=== PATIENT | male | born 1960 | race Caucasian/White ===

== ENCOUNTER 2016-08-24 15:26 | Emergency (ER) | payer BC, OTHER ==
[~2016-08-24] VITALS: Ht 182.9 cm; Wt 87.0 kg
[2016-08-24 15:30] VITALS: TEMP 36.6; Ht 182.9 cm; Wt 87.0 kg
[2016-08-24] MEDS ORDERED: MINO50TA PO (16:33)
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
--- NOTE | 2016-08-24 16:49 | DIAGNOSTIC IMAGING REPORT ---
LUMBAR SPINE 5 VIEWS HISTORY: Lower back pain COMPARISON: Lumbar spine 06/27/2010. FINDINGS: There is no fracture. No subluxation. Moderate to severe disc space narrowing at L4-L5, unchanged. Moderate facet degenerative changes seen within the lower lumbar spine. The sacrum appears intact. IMPRESSION: No fracture or subluxation within the lumbar spine. Electronically signed by: Sunil Brunner M.D. 08/24/2016 4:47 PM Dictated Date/Time: 08/24/2016 4:45 PM
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
[2016-08-24 18:11] VITALS: BP 141/93; PULSE 87; O2SAT 97
== END 2016-08-24 18:12 | disposition home or self-care (01) ==
LOC: C.EDB 15:28 → C.EDD 18:12
DX: S16.1XXA Strain of muscle, fascia and tendon at neck level, initial encounter (principal); M54.9 Dorsalgia, unspecified; M25.559 Pain in unspecified hip; M79.606 Pain in leg, unspecified; R51 Headache; V43.52XA Car driver injured in collision with other type car in traffic accident, initial encounter; Z98.890 Other specified postprocedural states; Z83.3 Family history of diabetes mellitus

== ENCOUNTER 2016-09-22 12:55 | Emergency (ER) | payer OTHER, BC ==
[~2016-09-22] VITALS: Ht 182.9 cm; Wt 86.0 kg
[~2016-09-22 12:55] MED LIST: MINO50TA PO
[2016-09-22 13:06] VITALS: TEMP 36.4; Ht 182.9 cm; Wt 86.0 kg
[2016-09-22] MEDS ORDERED: KETOROLAC TROMETHAMINE 60 MG/2 ML VIAL IM STA (13:24)
[2016-09-22] MEDS ORDERED: ACETAMINOPHEN 500 MG TAB PO STA (13:24)
[2016-09-22] MEDS ORDERED: DEXAMETHASONE SOD INJ 10 MG/ML VIAL IM ONE (13:30)
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
[2016-09-22] MEDS ORDERED: HYDR-5688 PO (14:20)
[2016-09-22] MEDS ORDERED: METH4PAK PO (14:20)
[2016-09-22] MEDS ORDERED: CYCL10TA6 PO (14:20)
[2016-09-22 14:33] VITALS: BP 149/59; PULSE 85; O2SAT 98
== END 2016-09-22 14:33 | disposition home or self-care (01) ==
LOC: C.EDB 12:56 → C.EDD 14:33
DX: M54.5 Low back pain (principal); M54.16 Radiculopathy, lumbar region; Z98.890 Other specified postprocedural states

== ENCOUNTER 2016-09-26 11:08 | Emergency (ER) | payer OTHER, BC ==
[~2016-09-26] VITALS: Ht 182.9 cm; Wt 85.4 kg
[~2016-09-26 11:08] MED LIST changes: +CYCL10TA6 PO; +HYDR-5688 PO; +METH4PAK PO
[2016-09-26 11:10] VITALS: TEMP 36.5; Ht 182.9 cm; Wt 85.4 kg
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
[2016-09-26] MEDS ORDERED: HYDR-5688 PO (12:28)
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
[2016-09-26 12:33] VITALS: BP 156/101; PULSE 84; O2SAT 98
== END 2016-09-26 12:39 | disposition home or self-care (01) ==
LOC: C.EDB 11:10
DX: M54.5 Low back pain (principal); M25.552 Pain in left hip; Z98.890 Other specified postprocedural states; Z79.899 Other long term (current) drug therapy; Z80.9 Family history of malignant neoplasm, unspecified; Z83.79 Family history of other diseases of the digestive system

== ENCOUNTER → 2017-01-26 | Outpatient (CLI) | payer BC ==
[~2017-01-26] MED LIST changes: -CYCL10TA6 PO; -METH4PAK PO
[2017-01-26 17:42] LABS: ALT/SGPT 24 U/L (12-78); AST/SGOT 16 U/L (15-37); BLOOD UREA NITROGEN 11 mg/dl (7-18); BUN/CREATININE RATIO 12.2 (10-20); CALCIUM 9.4 mg/dl (8.5-10.1); CARBON DIOXIDE 24 mmol/L (21-32); CHLORIDE 105 mmol/L (98-107); CHOLESTEROL 219 mg/dl (0-200); CREATININE 0.86 mg/dl (0.60-1.40); GLUCOSE 98 mg/dl (70-99); POTASSIUM 3.8 mmol/L (3.5-5.1); SODIUM 138 mmol/L (136-145); TRIGLYCERIDES 108 mg/dl (0-150); VERY LOW DENSITY LIPOPROT CALC 22 mg/dl
[2017-01-26 17:45] LABS: ALB/GLOB RATIO 1.4 (0.9-2); ALKALINE PHOSPHATASE 65 U/L (45-117); CHOLESTEROL/HDL RATIO 3.6; HDL CHOLESTEROL 61 mg/dl; LDL CHOLESTEROL CALCULATED 136 mg/dl
== END | disposition home or self-care (01) ==
LOC: C.LABBC 14:43
PROVIDERS: ATTEND Physician Assistant
DX: E78.1 Pure hyperglyceridemia (principal)

== ENCOUNTER 2017-07-31 19:14 | Emergency (ER) | payer BC, OTHER ==
[~2017-07-31] VITALS: Ht 182.9 cm; Wt 91.9 kg
[~2017-07-31 19:14] MED LIST changes: -HYDR-5688 PO
[2017-07-31 19:16] VITALS: TEMP 36.8; Ht 182.9 cm; Wt 91.9 kg
[2017-07-31] MEDS ORDERED: SODIUM CHLORIDE 0.9% 1000ML 1,000 ML IV STA (19:31)
[2017-07-31] MEDS ORDERED: KETOROLAC TROMETHAMINE 30 MG/ML VIAL IV STA (19:31)
[2017-07-31 19:42] LABS: BASO % 0.3 %; BASO ABS # 0.03 K/uL (0-0.2); EOS % 0.5 %; EOS ABS # 0.06 K/uL (0-0.5); HEMATOCRIT 46.1 % (42-52); HEMOGLOBIN 16.3 g/dL (14.0-18.0); IG# 0.14 K/uL (0.00-0.02); LYMPH % 26.9 %; LYMPH ABS # 3.04 K/uL (1.2-3.4); MEAN CELL VOLUME 83.8 fL (80-100); MEAN CORPUSCULAR HEMOGLOBIN 29.6 pg (25-34); MEAN CORPUSCULAR HGB CONC 35.4 g/dl (32-36); MEAN PLATELET VOLUME 9.8 fL (7.4-10.4); MONO % 8.5 %; MONO ABS # 0.96 K/uL (0.11-0.59); NEUT % 62.6 %; NEUT ABS # 7.08 K/uL (1.4-6.5); PLATELET COUNT 259 K/uL (130-400); RED CELL DISTRIBUTION WIDTH CV 14.2 % (11.5-14.5); RED CELL DISTRIBUTION WIDTH SD 43.5 fL (36.4-46.3); WHITE BLOOD COUNT 11.31 K/uL (4.8-10.8)
[2017-07-31] MEDS ORDERED: OPTIRAY 320 IV PRN (19:45)
[2017-07-31] MEDS ORDERED: IBUP-103 PO (19:47)
--- NOTE | 2017-07-31 20:00 | EMERGENCY ROOM VISIT NOTE ---
History Report prepared by Zhou: Hui Cobos Under the Supervision of: Dr. Wilber Flowers M.D. First contact with patient: 19:21 Chief Complaint: FLANK PAIN Stated Complaint: R ABD PAIN-R LOWER BACK History of Present Illness The patient is a 56 year old male who presents to the Emergency Room with complaints of intermittent right sided abdominal pain beginning on Wednesday, four days ago. The patient states his pain radiates to his right sided back. He states his pain worsens when he eats. Presently, he rates his pain as a 4/10. The patient reports he saw his PCP for a regular check up three days ago. He told his PCP about his symptoms who did not think his pain was anything to be concerned about. The patient notes he had a similar pain in May. He denies any nausea, vomiting, diarrhea, urinary symptoms, or testicular pain. Source of History: patient Onset: 4 days ago Position: abdomen Symptom Intensity: 4/10 Timing: intermittent Modifying Factors (Relieving): eating Associated Symptoms: + abdominal pain, No nausea, No vomiting, No diarrhea, No urinary symptoms Review of Systems See HPI for pertinent positives and negatives. A total of ten systems were reviewed and were otherwise negative. Past Medical & Surgical Medical Problems: (1) No Known Active Medical Problems Family History Patient reports no known family medical history. Social History Smoking Status: Never Smoker Housing Status: lives alone Occupation Status: employed Current/Historical Medications Scheduled PRN Ibuprofen Tab (Advil), 200-600 MG PO Q4H PRN for Pain Allergies Coded Allergies: No Known Allergies (Unverified , 07/31/17) Physical Exam Vital Signs Date Time Temp Pulse Resp B/P (MAP) Pulse Ox O2 Delivery O2 Flow Rate FiO2 07/31/17 20:49 73 18 168/105 97 Room Air 07/31/17 19:16 36.8 79 16 179/115 97 Room Air Physical Exam GENERAL: Awake, alert, well-appearing, in no distress HENT: Normocephalic, atraumatic. Oropharynx unremarkable. EYES: Normal conjunctiva. Sclera non-icteric. NECK: Supple. No nuchal rigidity. FROM. No JVD. RESPIRATORY: Clear to auscultation. CARDIAC: Regular rate, normal rhythm. Extremities warm and well perfused. Pulses equal. ABDOMEN: Soft, non-distended. No tenderness to palpation. No rebound or guarding. No masses. RECTAL: Deferred. MUSCULOSKELETAL: Chest examination reveals no tenderness. The back is symmetrical on inspection without obvious abnormality. There is no CVA tenderness to palpation. No joint edema. LOWER EXTREMITIES: Calves are equal size bilaterally and non-tender. No edema. No discoloration. NEURO: Normal sensorium. No sensory or motor deficits noted. SKIN: No rash or jaundice noted. Medical Decision & Procedures ER Provider Diagnostic Interpretation: Radiology results as stated below per my review and radiologist interpretation: CT SCAN OF THE ABDOMEN AND PELVIS WITH IV CONTRAST FINDINGS: Lung bases: The heart is enlarged and without pericardial effusion. There are coronary artery calcifications. Calcified granulomas are noted in the right lung base. The lung bases are otherwise clear noting dependent atelectasis. Liver: The contrast-enhanced liver is enlarged, measuring 18.9 cm in length. The liver demonstrates diffusely diminished attenuation consistent with hepatic steatosis. There is no intrahepatic biliary ductal dilatation. The hepatic veins and portal veins are patent. Gallbladder: Unremarkable. Spleen: Normal in size and attenuation. Pancreas: Unremarkable. Adrenal glands: Unremarkable. Kidneys: The contrast enhanced kidneys are normal in size and without hydronephrosis. The kidneys enhance symmetrically. Abdominal vasculature: The abdominal aorta is normal in course and caliber noting mild atherosclerotic calcification. Bowel: There are scattered colonic diverticula without CT evidence of acute diverticulitis. No bowel obstruction is seen. The appendix is well-visualized and normal. Peritoneum: There is no intraperitoneal free air or abdominal ascites. Lymphadenopathy: None. Pelvic viscera: The bladder, prostate, and seminal vesicles are normal as visualized. There are bilateral fat-containing inguinal hernias. Skeletal structures: A hemangioma is noted in the body of L3. No lytic or blastic lesions are seen. IMPRESSION: 1. There are no acute infectious or inflammatory findings in the abdomen or pelvis. 2. Hepatomegaly and hepatic steatosis. 3. Cardiomegaly. 4. Bilateral fat-containing inguinal hernias. 5. Additional findings as above. Electronically signed by: Alex Porter M.D. Laboratory Results 07/31/17 19:33 Red Blood Count 5.50, Mean Corpuscular Volume 83.8, Mean Corpuscular Hemoglobin 29.6, Mean Corpuscular Hemoglobin Concent 35.4, Mean Platelet Volume 9.8, Neutrophils (%) (Auto) 62.6, Lymphocytes (%) (Auto) 26.9, Monocytes (%) (Auto) 8.5, Eosinophils (%) (Auto) 0.5, Basophils (%) (Auto) 0.3, Neutrophils # (Auto) 7.08, Lymphocytes # (Auto) 3.04, Monocytes # (Auto) 0.96, Eosinophils # (Auto) 0.06, Basophils # (Auto) 0.03 07/31/17 19:33 Test 07/31/17 19:26 07/31/17 19:33 Urine Color YELLOW Urine Appearance CLEAR (CLEAR) Urine pH 6.5 (4.5-7.5) Urine Specific Thorp 1.011 (1.000-1.030) Urine Protein NEG (NEG) Urine Glucose (UA) NEG (NEG) Urine Ketones NEG (NEG) Urine Occult Blood TRACE (NEG) Urine Nitrite NEG (NEG) Urine Bilirubin NEG (NEG) Urine Urobilinogen NEG (NEG) Urine Leukocyte Esterase NEG (NEG) Urine WBC (Auto) 0 /hpf (0-5) Urine RBC (Auto) 0-4 /hpf (0-4) Urine Hyaline Casts (Auto) 0 /lpf (0-5) Urine Epithelial Cells (Auto) 0-5 /lpf (0-5) Urine Bacteria (Auto) NEG (NEG) White Blood Count 11.31 K/uL (4.8-10.8) Red Blood Count 5.50 M/uL (4.7-6.1) Hemoglobin 16.3 g/dL (14.0-18.0) Hematocrit 46.1 % (42-52) Mean Corpuscular Volume 83.8 fL (80-100) Mean Corpuscular Hemoglobin 29.6 pg (25-34) Mean Corpuscular Hemoglobin Concent 35.4 g/dl (32-36) Platelet Count 259 K/uL (130-400) Mean Platelet Volume 9.8 fL (7.4-10.4) Neutrophils (%) (Auto) 62.6 % Lymphocytes (%) (Auto) 26.9 % Monocytes (%) (Auto) 8.5 % Eosinophils (%) (Auto) 0.5 % Basophils (%) (Auto) 0.3 % Neutrophils # (Auto) 7.08 K/uL (1.4-6.5) Lymphocytes # (Auto) 3.04 K/uL (1.2-3.4) Monocytes # (Auto) 0.96 K/uL (0.11-0.59) Eosinophils # (Auto) 0.06 K/uL (0-0.5) Basophils # (Auto) 0.03 K/uL (0-0.2) RDW Standard Deviation 43.5 fL (36.4-46.3) RDW Coefficient of Variation 14.2 % (11.5-14.5) Immature Granulocyte % (Auto) 1.2 % Immature Granulocyte # (Auto) 0.14 K/uL (0.00-0.02) Anion Gap 12.0 mmol/L (3-11) Est Creatinine Clear Calc Drug Dose 90.0 ml/min Estimated GFR () 95.0 Estimated GFR (Non- 82.0 BUN/Creatinine Ratio 10.0 (10-20) Calcium Level 9.4 mg/dl (8.5-10.1) Total Bilirubin 0.8 mg/dl (0.2-1) Direct Bilirubin 0.2 mg/dl (0-0.2) Aspartate Amino Transf (AST/SGOT) 19 U/L (15-37) Alanine Aminotransferase (ALT/SGPT) 41 U/L (12-78) Alkaline Phosphatase 79 U/L (45-117) Total Protein 7.8 gm/dl (6.4-8.2) Albumin 4.2 gm/dl (3.4-5.0) Lipase 182 U/L (73-393) Laboratory results reviewed by me Medications Administered Medications (Trade) Dose Ordered Sig/Mikel Route Start Time Stop Time Status Last Admin Dose Admin Sodium Chloride 1,000 ml @ 999 mls/hr Q1H1M STAT IV 07/31/17 19:31 07/31/17 20:31 DC 07/31/17 19:50 999 MLS/HR Ketorolac Tromethamine (Toradol Inj) 15 mg NOW STAT IV 07/31/17 19:31 07/31/17 19:33 DC 07/31/17 19:50 15 MG ED Course 1925: The patient was evaluated in room C4. A complete history and physical exam was performed. 2048: I updated the patient on his test results he is feeling better. 2100: I reevaluated the patient. Discussed results and discharge instructions: He verbalized understanding and agreement. The patient is ready for discharge. Medical Decision I reviewed the patient's past medical history, medications, and the nursing notes as described above. Differential diagnosis: Etiologies such as appendicitis, diverticulitis, PUD, biliary pathology, UTI, pancreatitis, obstruction, mesenteric ischemia, aortic pathology, infections, inflammatory bowel disease, renal colic, as well as others were entertained. The patient is a 56-year-old gentleman who presents emergency department with right flank and right-sided abdominal pain that has been ongoing for the past several days per hpi. Rather the patient is relatively well-appearing in no acute distress, afebrile stable vital signs. Abdomen soft nontender nondistended. WBC within normal limits. UA with trace blood. Labs otherwise unremarkable. CT scan of the abdomen pelvis negative for acute findings. Patient feeling improved without any pain after IV fluids and Toradol. Unclear etiology of the patient's symptoms. Recently passed stone is possible though there is no evidence of recent obstruction. Findings and plan for follow-up reviewed with patient. Patient agreeable and d/c'd per discharge instructions. Medication Reconcilliation Current Medication List: was personally reviewed by me Blood Pressure Screening Patient's blood pressure: Elevated blood pressure Blood pressure disposition: Elevated BP felt to be situational Impression Primary Impression: Right flank pain Scribe Attestation The scribe's documentation has been prepared under my direction and personally reviewed by me in its entirety. I confirm that the note above accurately reflects all work, treatment, procedures, and medical decision making performed by me. Departure Information Dispostion Home / Self-Care Referrals Jony Matute M.D. (PCP) Forms HOME CARE DOCUMENTATION FORM, IMPORTANT VISIT INFORMATION Patient Instructions ED Abdominal Pain Unkn Cause Male, ED Flank Pain Uncertain Cause, My [facility] Additional Instructions Please follow up with your primary care physician in the next 1-3 days for re- evaluation. The cause of your symptoms is unclear at this time. It is possible that you may have passed a kidney stone. Otherwise, your exam, lab results, and CT scan did not show signs of an emergent condition at this time. Acetaminophen or ibuprofen for pain and fevers as needed. Drink plenty of fluids to ensure hydration. Return to the emergency department for worsening symptoms as described in the accompanying instructions.
[2017-07-31 20:01] LABS: ALBUMIN 4.2 gm/dl (3.4-5.0); CALCIUM 9.4 mg/dl (8.5-10.1); CREATININE 1.03 mg/dl (0.60-1.40); POTASSIUM 3.6 mmol/L (3.5-5.1)
[2017-07-31 20:04] LABS: TOTAL PROTEIN 7.8 gm/dl (6.4-8.2)
--- NOTE | 2017-07-31 20:44 | DIAGNOSTIC IMAGING REPORT ---
CT SCAN OF THE ABDOMEN AND PELVIS WITH IV CONTRAST CLINICAL HISTORY: Right lower quadrant abdominal pain. COMPARISON STUDY: Abdominal CT dated 03/17/2016. TECHNIQUE: Following the IV administration of 117 cc of Optiray 320, CT scan of the abdomen and pelvis is performed from the lung bases to the proximal femora. Images are reviewed in the axial, sagittal, and coronal planes. IV contrast was administered without complication. A dose lowering technique was utilized adhering to the principles of ALARA. CT DOSE: 523.59 mGy.cm FINDINGS: Lung bases: The heart is enlarged and without pericardial effusion. There are coronary artery calcifications. Calcified granulomas are noted in the right lung base. The lung bases are otherwise clear noting dependent atelectasis. Liver: The contrast-enhanced liver is enlarged, measuring 18.9 cm in length. The liver demonstrates diffusely diminished attenuation consistent with hepatic steatosis. There is no intrahepatic biliary ductal dilatation. The hepatic veins and portal veins are patent. Gallbladder: Unremarkable. Spleen: Normal in size and attenuation. Pancreas: Unremarkable. Adrenal glands: Unremarkable. Kidneys: The contrast enhanced kidneys are normal in size and without hydronephrosis. The kidneys enhance symmetrically. Abdominal vasculature: The abdominal aorta is normal in course and caliber noting mild atherosclerotic calcification. Bowel: There are scattered colonic diverticula without CT evidence of acute diverticulitis. No bowel obstruction is seen. The appendix is well-visualized and normal. Peritoneum: There is no intraperitoneal free air or abdominal ascites. Lymphadenopathy: None. Pelvic viscera: The bladder, prostate, and seminal vesicles are normal as visualized. There are bilateral fat-containing inguinal hernias. Skeletal structures: A hemangioma is noted in the body of L3. No lytic or blastic lesions are seen. IMPRESSION: 1. There are no acute infectious or inflammatory findings in the abdomen or pelvis. 2. Hepatomegaly and hepatic steatosis. 3. Cardiomegaly. 4. Bilateral fat-containing inguinal hernias. 5. Additional findings as above. Electronically signed by: Alex Porter M.D. 07/31/2017 8:43 PM Dictated Date/Time: 07/31/2017 8:38 PM
[2017-07-31 20:49] VITALS: BP 168/105; PULSE 73; O2SAT 97
== END 2017-07-31 21:06 | disposition home or self-care (01) ==
LOC: C.EDB 19:15 → C.EDC 21:06
DX: R10.9 Unspecified abdominal pain (principal)

== ENCOUNTER 2021-04-14 11:29 | Inpatient (IN) ==
[2021-04-14] MEDS ORDERED: SODIUM CHLORIDE 0.9% 1000ML 1,000 ML IV ONE (11:52)
[2021-04-14] MEDS ORDERED: dilTIAZem HCl 5 MG/ML 5 ML VIAL IV STA ×2 (11:55→12:46)
[2021-04-14] MEDS ORDERED: STAT IV Infusion **Titration per Protocol STA (11:59)
--- NOTE | 2021-04-14 12:01 | Emergency Department Note ---
History of Present Illness General Chief complaint: Shortness of Breath/Dyspnea Stated complaint: SOB FOR 5 DAYS History of Present Illness Maximum Pain Intensity: 8 This patient is a pleasant 60-year-old male who presents emergency department via private vehicle for evaluation of shortness of breath that has been going on for approximately 5 days. The patient noticed that it is worse with exertion. He also reports a mild, dull left-sided chest pain and a tingling in his left arm. He has never experienced symptoms like this before. He denies any recent cough or fever. No nausea reported. He has not taken anything for his symptoms. The patient contacted his family physician today, who sent him to the emergency department for evaluation. Home Medications Medication Instructions Recorded Confirmed Type ascorbic acid (vitamin C) 1,000 mg 1 gm PO DAILY tab 10/13/18 04/14/21 History tablet Allergies Allergy/AdvReac Type Severity Reaction Status Date / Time No Known Allergies Allergy Verified 03/14/21 12:57 Past Med/Surg History Medical History Allergic rhinitis Hepatic steatosis CT Abd//pelvis 07/2017 Surgical History S/P colonoscopy (05/18/16) Benign cystic lesion at hepatic flexure, Aspirate negative for malignancy. Recommend repeat colonoscopy [id number]. S/P tonsillectomy Family History Brother Diabetes Obesity Other Colonic polyp Social History Smoking Status: Never smoker Current Living Situation: Alone Feels Safe at Home: Yes Review of Systems A total of 10 systems reviewed and were otherwise negative Physical Exam Vital Signs Vital Signs - 24 hr 04/14/21 11:29 04/14/21 11:33 04/14/21 11:49 Temperature 36.6 C Temperature Source Temporal Artery Scan Pulse Rate 78 179 H Pulse Rate [Right Finger] 138 H Pulse Rate from SpO2 Sensor 109 H Pulse Rhythm [Right Finger] Irregular Respiratory Rate 26 H 20 28 H Respiratory Effort / Characteristics Non-Labored Non-Labored Spontaneous Respiratory Depth Normal Normal Respiratory Pattern Regular Regular Blood Pressure 136/82 Blood Pressure [Right Arm] 129/99 Blood Pressure Mean 100 Blood Pressure Mean [Right Arm] 109 Blood Pressure Position Sitting Blood Pressure Position [Right Arm] Sitting Pulse Oximetry 95 96 98 Oxygen Delivery Method Room Air Room Air Sepsis Recent Fever Within 48 Hours No Sepsis New/Unexplained Change in Mental Status No Sepsis Action Taken by Nursing No Action Required 04/14/21 11:50 04/14/21 12:00 04/14/21 12:10 Temperature Temperature Source Pulse Rate 180 H 188 H 188 H Pulse Rate [Right Finger] Pulse Rate from SpO2 Sensor 115 H 147 H Pulse Rhythm [Right Finger] Respiratory Rate 29 H 29 H 25 H Respiratory Effort / Characteristics Respiratory Depth Respiratory Pattern Blood Pressure Blood Pressure [Right Arm] Blood Pressure Mean Blood Pressure Mean [Right Arm] Blood Pressure Position Blood Pressure Position [Right Arm] Pulse Oximetry 97 92 Oxygen Delivery Method Sepsis Recent Fever Within 48 Hours Sepsis New/Unexplained Change in Mental Status Sepsis Action Taken by Nursing 04/14/21 12:20 04/14/21 12:30 04/14/21 12:40 Temperature Temperature Source Pulse Rate 134 H 153 H 153 H Pulse Rate [Right Finger] Pulse Rate from SpO2 Sensor 118 H 94 H 118 H Pulse Rhythm [Right Finger] Respiratory Rate 28 H 23 25 H Respiratory Effort / Characteristics Respiratory Depth Respiratory Pattern Blood Pressure Blood Pressure [Right Arm] Blood Pressure Mean Blood Pressure Mean [Right Arm] Blood Pressure Position Blood Pressure Position [Right Arm] Pulse Oximetry 92 93 93 Oxygen Delivery Method Sepsis Recent Fever Within 48 Hours Sepsis New/Unexplained Change in Mental Status Sepsis Action Taken by Nursing 04/14/21 12:50 04/14/21 13:00 04/14/21 13:10 Temperature Temperature Source Pulse Rate 161 H 164 H 148 H Pulse Rate [Right Finger] Pulse Rate from SpO2 Sensor 104 H 131 H 138 H Pulse Rhythm [Right Finger] Respiratory Rate 30 H 24 26 H Respiratory Effort / Characteristics Respiratory Depth Respiratory Pattern Blood Pressure Blood Pressure [Right Arm] Blood Pressure Mean Blood Pressure Mean [Right Arm] Blood Pressure Position Blood Pressure Position [Right Arm] Pulse Oximetry 92 94 93 Oxygen Delivery Method Sepsis Recent Fever Within 48 Hours Sepsis New/Unexplained Change in Mental Status Sepsis Action Taken by Nursing 04/14/21 13:20 04/14/21 13:30 04/14/21 13:40 Temperature Temperature Source Pulse Rate 122 H 138 H 159 H Pulse Rate [Right Finger] Pulse Rate from SpO2 Sensor 109 H 104 H 123 H Pulse Rhythm [Right Finger] Respiratory Rate 25 H 25 H 29 H Respiratory Effort / Characteristics Respiratory Depth Respiratory Pattern Blood Pressure 118/88 Blood Pressure [Right Arm] Blood Pressure Mean 98 Blood Pressure Mean [Right Arm] Blood Pressure Position Blood Pressure Position [Right Arm] Pulse Oximetry 92 96 96 Oxygen Delivery Method Sepsis Recent Fever Within 48 Hours Sepsis New/Unexplained Change in Mental Status Sepsis Action Taken by Nursing 04/14/21 13:50 04/14/21 13:51 04/14/21 14:00 Temperature Temperature Source Pulse Rate 145 H 159 H Pulse Rate [Right Finger] 137 H Pulse Rate from SpO2 Sensor 124 H 118 H Pulse Rhythm [Right Finger] Respiratory Rate 25 H 31 H 32 H Respiratory Effort / Characteristics Respiratory Depth Respiratory Pattern Blood Pressure 146/111 H Blood Pressure [Right Arm] 118/88 Blood Pressure Mean 122 Blood Pressure Mean [Right Arm] 98 Blood Pressure Position Blood Pressure Position [Right Arm] Sitting Pulse Oximetry 93 93 96 Oxygen Delivery Method Room Air Sepsis Recent Fever Within 48 Hours Sepsis New/Unexplained Change in Mental Status Sepsis Action Taken by Nursing See below Constitutional WD/WN, vitals as above Eyes EOM intact bilaterally ENMT external ear and nose normal, oropharynx normal Neck trachea midline Respiratory normal respiratory effort, lungs clear to auscultation Cardiovascular Tachycardic. Irregularly irregular. Radial pulse +2 bilaterally. Gastrointestinal (Abdomen) normal bowel sounds, soft, nontender, no hepatosplenomegaly Musculoskeletal no cyanosis or clubbing, extremities motor strength 5/5 Skin no rashes, warm and dry Neurologic Alert and oriented x3. No focal motor deficits. Psychiatric Acting appropriately Course Course Patient was seen and examined Vital signs including blood pressure were reviewed medications list was verified with patient Labs were obtained, and a saline lock was established And EKG was performed and reviewed An order was placed for continuous cardiac monitoring. The monitor shows a rate of 178 with atrial fibrillation with RVR The patient was ordered diltiazem bolus and a diltiazem drip in addition to fluids Imaging was performed reviewed The case was discussed with my supervising physician who is in agreement with my plan Upon reevaluation, the patient was resting comfortably. She denied any pain. We discussed his results. He voiced understanding, and was comfortable with disposition and likely admission. He was ordered an additional dose of diltiazem 15 mg IV bolus The patient was evaluated by the hospitalist service. Patient remained stable in the emergency department Consultations Consultation #1: Dr. Palomnio Administered Medications Diltiazem HCl 125 mg/ Dextrose 125 mls @ 15 mls/hr IV .Q8H20M REPLACED BY [facility]; Protocol Stop: 05/14/21 11:59 Last Titration: 04/14/21 14:13 Dose: 15 mg/hr, 15 mls/hr Documented by: [id number] Cosigned by: [id number] Titration: 04/14/21 13:38 Dose: 10 mg/hr, 10 mls/hr Documented by: [id number] Cosigned by: [id number] Admin: 04/14/21 12:29 Dose: 5 mg/hr, 5 mls/hr Documented by: [id number] Cosigned by: [id number] Discontinued Medications Diltiazem HCl (Diltiazem Hcl 5 Mg/Ml 5 Ml Vial) 10 mg IV NOW STA Stop: 04/14/21 11:56 Last Admin: 04/14/21 12:17 Dose: 10 mg Documented by: [id number] Cosigned by: [id number] Diltiazem HCl (Diltiazem Hcl 5 Mg/Ml 5 Ml Vial) 15 mg IV NOW STA Stop: 04/14/21 12:47 Last Admin: 04/14/21 13:03 Dose: 15 mg Documented by: [id number] Cosigned by: [id number] Sodium Chloride (Nss 1000ml) 1,000 mls @ 999 mls/hr IV .Q1H1M ONE Stop: 04/14/21 12:52 Last Admin: 04/14/21 12:16 Dose: 999 mls/hr Documented by: [id number] Medical Decision Making Medical Records Attestation: I reviewed the patient's medical records. Home Medications Current Medication List: was personally reviewed by me Laboratory Data Attestation: I reviewed the patient's lab results. Result diagrams: 04/14/21 11:55 04/14/21 11:55 Lab Results 04/14/21 04/14/21 04/14/21 Range/Units 11:55 11:55 11:55 WBC 11.38 H (4.8-10.8) K/uL RBC 5.12 (4.7-6.1) M/uL Hgb 14.8 (14.0-18.0) g/dL Hct 45.4 (42-52) % MCV 88.7 (80-100) fL MCH 28.9 (25-34) pg MCHC 32.6 (32-36) g/dL RDW Std Deviation 48.2 H (36.4-46.3) fL RDW Coeff of Paz 15.0 H (11.5-14.5) % Plt Count 278 (130-400) K/uL MPV 11.4 H (7.4-10.4) fL Immature Gran % (Auto) 0.5 % Neut % (Auto) 70.6 % Lymph % (Auto) 21.3 % [place] % (Auto) 7.3 % Eos % (Auto) 0.0 % Baso % (Auto) 0.3 % Neut # (Auto) 8.04 H (1.4-6.5) K/uL Lymph # (Auto) 2.42 (1.2-3.4) K/uL [place] # (Auto) 0.83 H (0.11-0.59) K/uL Eos # (Auto) 0.00 (0-0.5) K/uL Baso # (Auto) 0.03 (0-0.2) K/uL Immature Gran # (Auto) 0.06 H (0.00-0.02) K/uL PT 11.0 (9.0-12.0) Seconds INR 1.1 (0.9-1.1) APTT 24.4 (21.0-31.0) Seconds PTT Ratio 0.9 Sodium 138 (136-145) mmol/L Potassium 3.8 (3.5-5.1) mmol/L Chloride 110 H (98-107) mmol/L Carbon Dioxide 21 (21-32) mmol/L Anion Gap 7.0 (3-11) BUN 12 (7-18) mg/dl Creatinine 1.18 (0.6-1.4) mg/dl Est Cr Clr Drug Dosing 80.9 ml/min Est GFR ( Amer) 78.4 ml/min Est GFR (Non-Af Amer) 67.6 ml/min BUN/Creatinine Ratio 10.5 (10-20) Glucose 140 H (70-99) mg/dl Calcium 8.8 (8.5-10.1) mg/dl Magnesium 2.1 (1.8-2.4) mg/dl Total Bilirubin 1.0 (0.2-1) mg/dl AST 89 H (15-37) U/L ALT 224 H (12-78) Alkaline Phosphatase 95 (45-117) U/L Troponin I < 0.015 (0-0.045) ng/ml Total Protein 6.9 (6.4-8.2) gm/dl Albumin 3.5 (3.4-5.0) gm/dl Globulin 3.4 (2.5-4.0) gm/dl Albumin/Globulin Ratio 1.0 (0.9-2) SARS-CoV-2, RNA, NAAT (NEGATIVE) 04/14/21 Range/Units 12:30 WBC (4.8-10.8) K/uL RBC (4.7-6.1) M/uL Hgb (14.0-18.0) g/dL Hct (42-52) % MCV (80-100) fL MCH (25-34) pg MCHC (32-36) g/dL RDW Std Deviation (36.4-46.3) fL RDW Coeff of Paz (11.5-14.5) % Plt Count (130-400) K/uL MPV (7.4-10.4) fL Immature Gran % (Auto) % Neut % (Auto) % Lymph % (Auto) % [place] % (Auto) % Eos % (Auto) % Baso % (Auto) % Neut # (Auto) (1.4-6.5) K/uL Lymph # (Auto) (1.2-3.4) K/uL [place] # (Auto) (0.11-0.59) K/uL Eos # (Auto) (0-0.5) K/uL Baso # (Auto) (0-0.2) K/uL Immature Gran # (Auto) (0.00-0.02) K/uL PT (9.0-12.0) Seconds INR (0.9-1.1) APTT (21.0-31.0) Seconds PTT Ratio Sodium (136-145) mmol/L Potassium (3.5-5.1) mmol/L Chloride (98-107) mmol/L Carbon Dioxide (21-32) mmol/L Anion Gap (3-11) BUN (7-18) mg/dl Creatinine (0.6-1.4) mg/dl Est Cr Clr Drug Dosing ml/min Est GFR ( Amer) ml/min Est GFR (Non-Af Amer) ml/min BUN/Creatinine Ratio (10-20) Glucose (70-99) mg/dl Calcium (8.5-10.1) mg/dl Magnesium (1.8-2.4) mg/dl Total Bilirubin (0.2-1) mg/dl AST (15-37) U/L ALT (12-78) Alkaline Phosphatase (45-117) U/L Troponin I (0-0.045) ng/ml Total Protein (6.4-8.2) gm/dl Albumin (3.4-5.0) gm/dl Globulin (2.5-4.0) gm/dl Albumin/Globulin Ratio (0.9-2) SARS-CoV-2, RNA, NAAT NEGATIVE (NEGATIVE) Imaging Data Attestation: I personally reviewed and interpreted this imaging study as follows: Radiologist's Impression: Chest X-Ray 04/14/21 11:52 XR chest 1V portable HISTORY: Shortness of breath. Weakness. COMPARISON: None. FINDINGS: No pneumothorax. No pleural effusions. The cardiac silhouette is mildly enlarged. The left lung is clear. Small patchy airspace opacity within the right medial lung base. No evidence for pulmonary edema. IMPRESSION: 1. Small patchy airspace opacity within the right medial lung base. This could represent atelectasis or pneumonia. 2. Mild cardiomegaly. ACT 112: Negative or not required by law. Electronically signed by: Sunil Brunner M.D. 04/14/2021 12:19 PM ECG Data Attestation: I personally reviewed and interpreted this ECG as follows: Additional Comments: EKG shows atrial fibrillation with RVR Ventricular rate 187 bpm QTC [address] elevation or depression noted. No prior for comparison noted Blood Pressure Blood Pressure Findings: Elevated blood pressure Blood Pressure Disposition: elevated BP felt to be situational MDM Narrative Differential diagnosis: Acute myocardial infarction, cardiac arrhythmia, anemia, thyroid abnormality, pneumothorax, pneumonia, bronchitis, pericarditis, electrolyte imbalance, pulmonary embolus, other infectious etiology, among othe rs This patient is a pleasant 60-year-old male who presents emergency department with a main complaint of shortness of breath and mild left-sided chest pain for the last 5 days. On exam, his heart rate was irregular and significantly high. Blood pressure was stable. EKG confirms A. fib with RVR. This was treated with diltiazem and IV fluids. Labs reveal mild leukocytosis. There was a possi ble opacity on the right on the chest x-ray. The patient denies any significant cough or fever. There was mild leukocytosis. Troponin is negative. Electrolytes were unremarkable. Renal function intact. Due to the fact that this is a new diagnosis, it was felt that the hospitalist should be consulted for likely inpatient management. The patient was in agreement. Impression & Plan Atrial fibrillation with RVR Discharge Plan Visit Data Chief Complaint: Shortness of Breath/Dyspnea Stated Complaint: SOB FOR 5 DAYS ED Provider: Jc Sifuentes ED Midlevel Provider: Dominique Piña Discharge Problem: Atrial fibrillation with RVR Patient Disposition: Admitted As Inpatient Discharge Instructions Interventions: ED Discharge Assessment Last Done: 04/14/21 14:48
[2021-04-14 12:11] LABS: Basophils # (auto) 0.03 K/uL (0-0.2); Basophils % (auto) 0.3 %; Hematocrit (blood only) 45.4 % (42-52); Hemoglobin 14.8 g/dL (14.0-18.0); Immature Granulocytes # (auto) 0.06 K/uL (0.00-0.02); Immature Granulocytes % (auto) 0.5 %; Lymphocytes # (auto) 2.42 K/uL (1.2-3.4); Lymphocytes % (auto) 21.3 %; Mean Corpuscular Hemoglobin 28.9 pg (25-34); Mean Corpuscular Hgb Conc 32.6 g/dL (32-36); Mean Corpuscular Volume 88.7 fL (80-100); Mean Platelet Volume 11.4 fL (7.4-10.4); Monocytes # (auto) 0.83 K/uL (0.11-0.59); Monocytes % (auto) 7.3 %; Neutrophils # (auto) 8.04 K/uL (1.4-6.5); Neutrophils % (auto) 70.6 %; Platelet Count 278 K/uL (130-400); RDW Standard Deviation 48.2 fL (36.4-46.3); Red Blood Count 5.12 M/uL (4.7-6.1); White Blood Count 11.38 K/uL (4.8-10.8)
--- NOTE | 2021-04-14 12:21 | XRay Report ---
XR chest 1V portable HISTORY: Shortness of breath. Weakness. COMPARISON: None. FINDINGS: No pneumothorax. No pleural effusions. The cardiac silhouette is mildly enlarged. The left lung is clear. Small patchy airspace opacity within the right medial lung base. No evidence for pulmo nary edema. IMPRESSION: 1. Small patchy airspace opacity within the right medial lung base. This could represent atelectasis or pneumonia. 2. Mild cardiomegaly. ACT 112: Negative or not required by law. Electronically signed by: Sunil Brunner M.D. 04/14/2021 12:19 PM
[2021-04-14 12:23] LABS: INR 1.1 (0.9-1.1); Partial Thromboplastin Ratio 0.9; Partial Thromboplastin Time 24.4 Seconds (21.0-31.0)
[2021-04-14 12:28] LABS: Chloride 110 mmol/L (98-107); Potassium 3.8 mmol/L (3.5-5.1); Sodium 138 mmol/L (136-145)
[2021-04-14] MEDS: dilTIAZem HCL 125 MG in DEXTROSE 5% 100 ML IV SCH ×2 (12:29→20:51)
[2021-04-14 12:32] LABS: Albumin Level 3.5 gm/dl (3.4-5.0); Aspartate Aminotransferase 89 U/L (15-37); BUN Creatinine Ratio 10.5 (10-20); Blood Urea Nitrogen 12 mg/dl (7-18); Calcium 8.8 mg/dl (8.5-10.1); Carbon Dioxide 21 mmol/L (21-32); Creatinine Clr Calc Pharmacy 80.9 ml/min; Est GFR (African American) 78.4 ml/min; Est GFR (Non-African American) 67.6 ml/min; Glucose 140 mg/dl (70-99); Magnesium 2.1 mg/dl (1.8-2.4)
[2021-04-14 12:37] LABS: Alanine Aminotransferase 224 (12-78); Alkaline Phosphatase 95 U/L (45-117); Globulin 3.4 gm/dl (2.5-4.0); Total Protein 6.9 gm/dl (6.4-8.2); Troponin I < 0.015 ng/ml (0-0.045)
--- NOTE | 2021-04-14 14:42 | History & Physical Report ---
Date of Service April 14, 2021 Assessment & Plan (1) Atrial fibrillation, new onset: Plan: Mr. Hernandez is a 60 year old male with a history of Hypertension, Hepatic Steatosis, Hypertriglyceridemia, BCC of the Skin, and Lumbar Spinal Stenosis who presented to [facility] ER today with New-Onset Atrial Fibrillation with RVR. His symptoms include SOB and PICKENS over the past 5 days. SOB is definitely worse with ambulation and physical activities. He also describes a mild, dull left- sided chest pain and a tingling in his left arm but this is not worse with exertion and is without associated symptoms. He specifically denies any associated nausea, vomiting, or diaphoresis. He does not however feel a sensation of palpitations. He has never experienced symptoms like this before. He has not taken any medications for these symptoms. The patient contacted his family physician today, who sent him to the emergency department for evaluation. In the ER he is noted to be in New-Onset Atrial Fibrillation with RVR. Initial Troponin I is undetectable. Electrolytes are within normal limits. EKG shows rapid A-Fib with non-specific ST and T wave abnormalities, no prior tracings available for comparison. CXR shows cardiomegaly. Echocardiogram is pending. We discussed what atrial fibrillation is, the natural history of atrial fibrillation, and various management strategies. His [id number] is 1 conferring a yearly stroke /thromboembolic risk of 1.3%. Recommend the followin. Admit to telemetry. 2. Continue IV Diltiazem drip for better rate control. 3. Add Lopressor 50 mg b.i.d. for rate control. 4. Begin Eliquis 5 mg b.i.d.. 5. Obtain an Echocardiogram. 6. Monitor daily labs and EKG's. (2) Atrial fibrillation with RVR: Plan: -- As outlined above. (3) Hypertension: Plan: -- Add Lopressor 50 mg b.i.d.. -- Can convert to Toprol XL at discharge. -- Monitor vital signs each shift. (4) Essential hypertriglyceridemia: Plan: -- Would benefit by weight loss and increased aerobic activities. -- Consider adding a statin =/- ezetamibe. History of Present Illness Chief Complaint: -- SOB/PICKENS. -- New onset A-Fib with RVR. Primary Care Provider: Jony Matute MD Mr. Hernandez is a 60 year old male with a history of Hypertension, Hepatic Steatosis, Hypertriglyceridemia, BCC of the Skin, and Lumbar Spinal Stenosis who presented to [facility] ER today complaining of SOB and PICKENS over the past 5 days. SOB is definitely worse with ambulation and physical activities. He also describes a mild, dull left-sided chest pain and a tingling in his left arm but this is not worse with exertion and is without associated symptoms. He specifically denies any associated nausea, vomiting, or diaphoresis. He does not however feel a sensation of palpitations. He has never experienced symptoms like this before. He has not taken any medications for these symptoms. The patient contacted his family physician today, who sent him to the emergency department for evaluation. Patient does not take any prescription medications. He denies any prior cardiac history or events. No family history of heart disease. Father of lung cancer. Mother of cancer. Patient is on correction disability. He does not exercise routinely. Allergies Allergy/AdvReac Type Severity Reaction Status Date / Time No Known Allergies Allergy Verified 03/14/21 12:57 Home Medications Medication Instructions Recorded Confirmed Type ascorbic acid (vitamin C) 1,000 mg 1 gm PO DAILY tab 10/13/18 04/14/21 History tablet Past Med/Surg History Medical History Allergic rhinitis Hepatic steatosis CT Abd//pelvis 07/2017 Surgical History S/P colonoscopy (05/18/16) Benign cystic lesion at hepatic flexure, Aspirate negative for malignancy. Recommend repeat colonoscopy [id number]. S/P tonsillectomy Family History Brother Diabetes Obesity Other Colonic polyp Social History Smoking Status: Never smoker Hx Alcohol Use: No Hx Substance Use: No Preferred Language: Azeri Communication Ability: Effective Fuse Cup Expander Required: No Beliefs That Will Affect Care: None Current Living Situation: Alone How many Children do You have: 0 Other Information That Helps Us Care for You: No Feels Safe at Home: Yes Safety Concerns: Feels Safe At This Time Assistive Devices: None Review of Systems Review of Systems: All systems reviewed & are unremarkable except as noted in HPI & below Physical Exam Physical Exam: GENERAL: Patient in no acute distress. HEENT: Head is atraumatic, normocephalic. EOM's intact. Facies symmetric. No perioral cyanosis. NECK: No JVD. JVP is not elevated. Carotid upstrokes are + 2 bilaterally without obvious bruits. CHEST/LUNGS: Clear to auscultation throughout all lung sheppard. No wheezes, rales, or crackles. CVS: S1 and S2 are irregularly irregular, tachycardic, and distant without obvious murmurs, gallops, or rubs. PMI is nonpalpable. No lifts, heaves, or thrills. No abdominal aortic or renal bruits. ABDOMINAL EXAM: Bowel sounds are present. No masses, organomegaly, or tenderness. EXTREMITIES: No clubbing or cyanosis. No edema. Intact posterior tibial and radial pulses bilaterally. NEUROLOGIC EXAM: Patient is awake, alert, and oriented. Pleasant and cooperative. Answers questions appropriately. Speech is clear. Normal movement in all 4 extremities. Gait pattern not assessed. COMPUTER APPLICATION DEVELOPER: -- A-Fib at a rate of 130 bpm. Results & Data Results & Data ([facility]) Vital Signs (Past 12 Hours) Vital Signs Temp Pulse Pulse Resp BP BP Pulse Ox 04/14/21 13:51 137 H 31 H 118/88 93 04/14/21 13:30 138 H 25 H 118/88 96 04/14/21 13:20 122 H 25 H 92 04/14/21 13:10 148 H 26 H 93 04/14/21 13:00 164 H 24 94 04/14/21 12:50 161 H 30 H 92 04/14/21 12:40 153 H 25 H 93 04/14/21 12:30 153 H 23 93 04/14/21 12:20 134 H 28 H 92 04/14/21 12:10 188 H 25 H 92 04/14/21 12:00 188 H 29 H 04/14/21 11:50 180 H 29 H 97 04/14/21 11:49 179 H 28 H 98 04/14/21 11:33 36.6 C 78 20 136/82 96 04/14/21 11:29 138 H 26 H 129/99 95 Laboratory Results Laboratory Results - last 24 hr 04/14/21 04/14/21 04/14/21 11:55 11:55 11:55 WBC 11.38 H RBC 5.12 Hgb 14.8 Hct 45.4 MCV 88.7 MCH 28.9 MCHC 32.6 RDW Std Deviation 48.2 H RDW Coeff of Paz 15.0 H Plt Count 278 MPV 11.4 H Immature Gran % (Auto) 0.5 Neut % (Auto) 70.6 Lymph % (Auto) 21.3 [place] % (Auto) 7.3 Eos % (Auto) 0.0 Baso % (Auto) 0.3 Neut # (Auto) 8.04 H Lymph # (Auto) 2.42 [place] # (Auto) 0.83 H Eos # (Auto) 0.00 Baso # (Auto) 0.03 Immature Gran # (Auto) 0.06 H PT 11.0 INR 1.1 APTT 24.4 PTT Ratio 0.9 Sodium 138 Potassium 3.8 Chloride 110 H Carbon Dioxide 21 Anion Gap 7.0 BUN 12 Creatinine 1.18 Est Cr Clr Drug Dosing 80.9 Est GFR ( Amer) 78.4 Est GFR (Non-Af Amer) 67.6 BUN/Creatinine Ratio 10.5 Glucose 140 H Calcium 8.8 Magnesium 2.1 Total Bilirubin 1.0 AST 89 H ALT 224 H Alkaline Phosphatase 95 Troponin I < 0.015 Total Protein 6.9 Albumin 3.5 Globulin 3.4 Albumin/Globulin Ratio 1.0 SARS-CoV-2, RNA, NAAT 04/14/21 12:30 WBC RBC Hgb Hct MCV MCH MCHC RDW Std Deviation RDW Coeff of Paz Plt Count MPV Immature Gran % (Auto) Neut % (Auto) Lymph % (Auto) [place] % (Auto) Eos % (Auto) Baso % (Auto) Neut # (Auto) Lymph # (Auto) [place] # (Auto) Eos # (Auto) Baso # (Auto) Immature Gran # (Auto) PT INR APTT PTT Ratio Sodium Potassium Chloride Carbon Dioxide Anion Gap BUN Creatinine Est Cr Clr Drug Dosing Est GFR ( Amer) Est GFR (Non-Af Amer) BUN/Creatinine Ratio Glucose Calcium Magnesium Total Bilirubin AST ALT Alkaline Phosphatase Troponin I Total Protein Albumin Globulin Albumin/Globulin Ratio SARS-CoV-2, RNA, NAAT NEGATIVE Diagnostic Findings CXR 04/14/21: 1. Small patchy airspace opacity within the right medial lung base. This could represent atelectasis or pneumonia. 2. Mild cardiomegaly. Medications Administered Medications ascorbic acid (vitamin C) 1,000 mg tablet 1 gm PO DAILY tab 10/13/18 [History Confirmed 04/14/21] Home Medications Diltiazem HCl 125 mg/ Dextrose 125 mls @ 15 mls/hr IV .Q8H20M [facility]; Protocol Stop: 05/14/21 11:59 Last Titration: 04/14/21 14:13 Dose: 15 mg/hr, 15 mls/hr Documented by: Code Status & VTE Plan Code Status Full Code VTE Prophylaxis Plan VTE Prophylaxis will be ordered: Yes Supervising Physician Co-Signing Physician Notes During face to face encoutner, I obtained a history and physical examination Discussed plan of care with patient and APC. I reviewed above note and agree with it. Answered all of the patient's questions. Patient will be admitted to [facility] on cardizem drip. will monitor Atrial fibrillation. PG Care Time/CCT Total # of Minutes Spent Total Time Spent with Patient: Total time spent is greater than 50% in coordination of care (as documented) at patient's floor/unit and/or counseling patient:30 Coding Level of Care Code 45528 Initial Inpt Care Lvl 3 Diagnoses Atrial fibrillation, new onset I48.91 Atrial fibrillation with RVR I48.91 Hypertension I10 Essential hypertriglyceridemia E78.1 Time Spent (min) 60
[2021-04-14] MEDS ORDERED: NITROGLYCERIN SL 0.4 MG/TAB TAB SL PRN (15:43)
[2021-04-14] MEDS ORDERED: POLYETHYLENE (MIRALAX) 17 GM PACK PO PRN (15:43)
[2021-04-14] MEDS ORDERED: MAGNESIUM HYDROXIDE SUSP 30 ML UDC PO PRN (15:43)
[2021-04-14] MEDS ORDERED: MoRPHine SULFATE 2 MG/ML CARP IV PRN (15:43)
[2021-04-14] MEDS ORDERED: ZOLPIDEM TARTRATE 5 MG TAB PO PRN (15:43)
[2021-04-14] MEDS ORDERED: ALUMINUM/MAGNESIUM SUSP 30 ML UDC PO PRN (15:43)
[2021-04-14] MEDS ORDERED: ONDANSETRON INJ 2 MG/ML 2 ML VIAL IV PRN (15:43)
[2021-04-14] MEDS ORDERED: ACETAMINOPHEN 325 MG TAB PO PRN (15:43)
[2021-04-14] MEDS ORDERED: NSS + 20MEQ KCL 20 MEQ/1,000 ML BAG IV SCH (16:00)
[2021-04-14] MEDS: NSS + 20MEQ KCL 20 MEQ/1,000 ML BAG IV SCH (17:19)
[2021-04-14] MEDS: APIXABAN 5 MG TABLET PO SCH (20:39)
[2021-04-14] MEDS ORDERED: METOPROLOL TARTRATE 50 MG TAB PO SCH (21:00)
[2021-04-14] MEDS ORDERED: CALCIUM GLUCONATE 10% 1,000 MG in SODIUM CHLORIDE 0.9% 50 ML IV ONE (23:34)
[2021-04-14] MEDS ORDERED: SODIUM CHLORIDE 0.9% 1000ML 1,000 ML IV SCH (23:34)
[2021-04-14] MEDS ORDERED: CALCIUM CHLORIDE 10% 10 ML SYR IV ONE (23:36)
[2021-04-15] MEDS ORDERED: CALCIUM CHLORIDE 10% 500 MG in SODIUM CHLORIDE 0.9% 50 ML IV STA (00:25)
[2021-04-15] MEDS ORDERED: CALCIUM CHLORIDE 10% 1,000 MG in SODIUM CHLORIDE 0.9% 50 ML IV STA (01:35)
[2021-04-15 02:17] LABS: BUN Creatinine Ratio 11.2 (10-20); Blood Urea Nitrogen 18 mg/dl (7-18); Calcium 9.2 mg/dl (8.5-10.1); Carbon Dioxide 20 mmol/L (21-32); Chloride 112 mmol/L (98-107); Creatinine Clr Calc Pharmacy 58.1 ml/min; Est GFR (African American) 53.8 ml/min; Est GFR (Non-African American) 46.4 ml/min; Glucose 168 mg/dl (70-99); Phosphorus 3.4 mg/dl (2.5-4.9); Potassium 4.8 mmol/L (3.5-5.1); Sodium 139 mmol/L (136-145); Troponin I < 0.015 ng/ml (0-0.045)
[2021-04-15 03:18] LABS: Magnesium 2.1 mg/dl (1.8-2.4)
[2021-04-15] MEDS ORDERED: DIGOXIN 250 MCG in SYRINGE 9 ML IV ONE (06:45)
[2021-04-15] MEDS ORDERED: PERFLUTREN LIPID MICROSPHERE (DEFINITY) IV ONE (06:54)
[2021-04-15] MEDS: NSS + 20MEQ KCL 20 MEQ/1,000 ML BAG IV SCH (07:06)
[2021-04-15 07:23] LABS: Basophils # (auto) 0.02 K/uL (0-0.2); Basophils % (auto) 0.2 %; Hematocrit (blood only) 42.5 % (42-52); Hemoglobin 13.8 g/dL (14.0-18.0); Immature Granulocytes # (auto) 0.07 K/uL (0.00-0.02); Immature Granulocytes % (auto) 0.6 %; Mean Corpuscular Hemoglobin 28.9 pg (25-34); Mean Corpuscular Hgb Conc 32.5 g/dL (32-36); Mean Corpuscular Volume 89.1 fL (80-100); Monocytes # (auto) 1.12 K/uL (0.11-0.59); Monocytes % (auto) 9.1 %; Neutrophils # (auto) 9.04 K/uL (1.4-6.5); Neutrophils % (auto) 73.1 %; Platelet Count 227 K/uL (130-400); RDW Coefficient of Variation 15.1 % (11.5-14.5); RDW Standard Deviation 48.3 fL (36.4-46.3); Red Blood Count 4.77 M/uL (4.7-6.1); White Blood Count 12.35 K/uL (4.8-10.8)
[2021-04-15 07:40] LABS: Potassium 4.9 mmol/L (3.5-5.1)
[2021-04-15 07:41] LABS: BUN Creatinine Ratio 13.4 (10-20); Calcium 8.8 mg/dl (8.5-10.1); Creatinine Clr Calc Pharmacy 62.1 ml/min; Est GFR (African American) 59.6 ml/min; Est GFR (Non-African American) 51.4 ml/min; Magnesium 2.1 mg/dl (1.8-2.4)
[2021-04-15] MEDS ORDERED: METOPROLOL TARTRATE 1 MG/ML VIAL IV STA ×2 (08:04→16:21)
[2021-04-15] MEDS: ASCORBIC ACID 500 MG TAB PO SCH (08:25)
[2021-04-15] MEDS: APIXABAN 5 MG TABLET PO SCH ×2 (08:25→20:07)
--- NOTE | 2021-04-15 08:29 | XCELERA ---
[id number]
--- NOTE | 2021-04-15 08:55 | Cardiology Consultation ---
Date of Consultation April 15, 2021 Assessment & Plan (1) Atrial fibrillation, new onset: (2) Cardiomyopathy: (3) Hypertension: 1. Atrial fibrillation: From his history I cannot be sure how long he has been in atrial fibrillation. It has been at least 3 to 5 days but I suspect longer. Since he does not have palpitations and we are relying on when he developed shortness of breath this could have occurred due to left ventricular dysfunction and may have occurred sometime after the arrhythmia began. The heart rate is very fast and we need rate control. My recommendation would be rate control, anticoagulation and cardioversion in 3 to 4 weeks. 2. Cardiomyopathy: He has a quite severe cardiomyopathy but he does not seem to be in congestive heart failure. The only symptom that I can elicit is exertional shortness of breath which could be the arrhythmia or the left ventricular function, he does have a vague history of waking up at night which could be PND but does not fit the fact that he does not seem to be fluid overloaded. I am hopeful that the cardiomyopathy is related tothe rapid heart rate. Since we do not have any evidence of ischemia I would not investigate further at this time although if his ejection fraction does not quickly improve we may be forced to do so. I am going to plan on getting a limited echo prior to discharge to see what there has been some improvement. In the meantime I would treat him with metoprolol succinate and digoxin, I am holding off on GARY or ARB therapy at the moment due to his kidney function and hypotension with rate control. 3. Hypertension: He has a history of hypertension, that corrected with minimal medications. We may be able to control his blood pressure and heart rate just with beta-blockade. History of Present Illness Reason for Consultation: AF, Cardiomyopathy Attending Physician: Arline Cowan MD History of Present Illness This is a 60-year-old gentleman with a history of hypertension, hypertriglyceridemia but no cardiac history that I am aware of who presented with a 5-day history of shortness of breath and dyspnea on exertion. He also describes a left-sided chest discomfort which is not worse with exertion. He may have had intermittent PND for about 2 weeks but that is not clear. No orthopnea or edema. He has not had a sense of palpitations however in the emergency room was noted to be in atrial fibrillation with rapid heart rate of over 180 bpm. He was initiated on intravenous diltiazem for rate control as well as metoprolol tartrate 50 mg twice a day and was started on Eliquis 5 mg twice a day. This morning by electrocardiogram his rate is 85 bpm but mayra remains in atrial fibrillation. He did have some slowing overnight and his BP dropped to 77/48. An echocardiogram this morning shows a LVEF of 20-25%. This morning his HR is faster and he remains asymptomatic. Allergies Allergy/AdvReac Type Severity Reaction Status Date / Time No Known Allergies Allergy Verified 03/14/21 12:57 Home Medications Medication Instructions Recorded Confirmed Type ascorbic acid (vitamin C) 1,000 mg 1 gm PO DAILY tab 10/13/18 04/14/21 History tablet Patient History Medical History Allergic rhinitis Hepatic steatosis CT Abd//pelvis 07/2017 Surgical History S/P colonoscopy (05/18/16) Benign cystic lesion at hepatic flexure, Aspirate negative for malignancy. Recommend repeat colonoscopy [id number]. S/P tonsillectomy Family History Brother Diabetes Obesity Other Colonic polyp Social History Smoking Status: Never smoker Hx Alcohol Use: No Hx Substance Use: No Preferred Language: Amharic Communication Ability: Effective Principal Research Economist Required: No Beliefs That Will Affect Care: None Current Living Situation: Alone Other Information That Helps Us Care for You: No Feels Safe at Home: Yes Safety Concerns: Feels Safe At This Time Assistive Devices: None Review of Systems Review of Systems: All systems reviewed & are unremarkable except as noted in HPI & below Physical Exam Physical Exam: Constitutional: Alert, cooperative and in no distress. HEENT: Unremarkable Neck: No jugular venous distention, carotid pulses are irregular but otherwise normal and equal bilaterally without bruits. Pulmonary: Clear to auscultation bilaterally. Cardiac: Irregular rhythm with no murmur, gallop or rub. Abdomen: Soft, nontender with normal bowel sounds. Extremities: No edema. Distal pulses intact. Neurologic: No focal findings. Gait is steady. Skin: No rash, ecchymoses or petechiae. Results & Data ([facility]) Vital Signs (Past 12 Hours) Vital Signs Temp Pulse Pulse Resp BP BP Pulse Ox 04/15/21 08:20 146 H 111/77 04/15/21 08:00 37.0 C 20 115/71 95 04/15/21 07:06 128 H 04/15/21 03:20 37.2 C 91 H 20 109/65 94 04/15/21 01:50 94 H 104/77 04/15/21 01:15 98 H 95/61 L 04/15/21 00:55 91 H 93/62 L 04/15/21 00:41 94 H 93/68 L 04/15/21 00:05 73 77/48 L 04/14/21 23:43 71 93/68 L 04/14/21 23:30 36.6 C 86 20 80/53 L 90 04/14/21 22:30 88 130/98 Laboratory Results Cardiac Enzymes 04/14/21 04/15/21 Range/Units 11:55 00:28 AST 89 H (15-37) U/L Troponin I < 0.015 < 0.015 (0-0.045) ng/ml Coagulation 04/14/21 Range/Units 11:55 PT 11.0 (9.0-12.0) Seconds APTT 24.4 (21.0-31.0) Seconds CBC 04/14/21 04/15/21 Range/Units 11:55 07:01 WBC 11.38 H 12.35 H (4.8-10.8) K/uL RBC 5.12 4.77 (4.7-6.1) M/uL Hgb 14.8 13.8 L (14.0-18.0) g/dL Hct 45.4 42.5 (42-52) % Plt Count 278 227 (130-400) K/uL Neut # (Auto) 8.04 H 9.04 H (1.4-6.5) K/uL Lymph # (Auto) 2.42 2.10 (1.2-3.4) K/uL Kingfisher # (Auto) 0.83 H 1.12 H (0.11-0.59) K/uL Eos # (Auto) 0.00 0.00 (0-0.5) K/uL Baso # (Auto) 0.03 0.02 (0-0.2) K/uL Comprehensive Metabolic Panel 04/14/21 04/15/21 04/15/21 Range/Units 11:55 00:28 07:01 Sodium 138 139 140 (136-145) mmol/L Potassium 3.8 4.8 D 4.9 (3.5-5.1) mmol/L Chloride 110 H 112 H 115 H (98-107) mmol/L Carbon Dioxide 21 20 L 17 L (21-32) mmol/L BUN 12 18 20 H (7-18) mg/dl Creatinine 1.18 1.61 H D 1.48 H (0.6-1.4) mg/dl Glucose 140 H 168 H 122 H (70-99) mg/dl Calcium 8.8 9.2 8.8 (8.5-10.1) mg/dl AST 89 H (15-37) U/L ALT 224 H (12-78) Alkaline Phosphatase 95 (45-117) U/L Total Protein 6.9 (6.4-8.2) gm/dl Albumin 3.5 (3.4-5.0) gm/dl Intake and Output 04/14/21 04/15/21 04/15/21 22:59 06:59 14:59 Intake Total 1124.25 / 3545.833 1904.667 / 3545.833 505.333 / 505.333 Output Total Balance 1124.25 / 3544.833 1903.667 / 3544.833 505.333 / 505.333 Intake: IV 1124.25 / 3145.833 1504.667 / 3145.833 505.333 / 505.333 Nss + 20Meq KCl 20 meq In 1,000 494.667 / 1000.000 505.333 / 505.333 ml @ 80 mls/hr IV .[id number] BENJAMÍN Rx#:[id number] Sodium Chloride 0.9% 1000ML 1, 1000 / 2000 1000 / 2000 000 ml @ 999 mls/hr IV .Q1H1M BENJAMÍN Rx#:[id number] dilTIAZem HCL 125 mg In 124.25 / 145.833 10 / 145.833 0 / 0 Dextrose 5% 100 ml @ 0 MG/HR IV .Q0M BENJAMÍN Rx#:[id number] Oral 400 / 400 Output: # Bowel Movements Other: Weight 95.8 kg 92.4 kg Weight Measurement Method Built in Bedscale Built in Bedscale Diagnostic Findings Telemetry: Atrial fibrillation since admission, decreased somewhat overnight on intravenous diltiazem, increasing again this morning with discontinuation of diltiazem. PG Care Time/CCT Total # of Minutes Spent Total Time Spent with Patient: Total time spent is greater than 50% in coordination of care (as documented) at patient's floor/unit and/or counseling patient: Coding Level of Care Code 65509 Inpt Consult Level 4 Diagnoses Atrial fibrillation, new onset I48.91 Cardiomyopathy I42.9 Hypertension I10
[2021-04-15] MEDS ORDERED: STAT IV Infusion **Titration per Protocol STA (09:16)
[2021-04-15] MEDS ORDERED: dilTIAZem HCl 5 MG/ML 5 ML VIAL IV STA (09:16)
[2021-04-15] MEDS ORDERED: dilTIAZem HCL 125 MG in DEXTROSE 5% 100 ML IV SCH (09:30)
[2021-04-15] MEDS ORDERED: METOPROLOL SUCC 25MG EXT REL TAB PO SCH (10:05)
[2021-04-15] MEDS ORDERED: DIGOXIN 0.25 MG TAB PO ONE ×2 (10:15→13:00)
--- NOTE | 2021-04-15 16:02 | Hospitalist Progress Note ---
Date of Service April 15, 2021 Assessment & Plan (1) Atrial fibrillation with RVR: Plan: IV diltiazem drip started, then transition to Lopressor IV Lopressor stopped due to hypotension, IV digoxin given (250 mcg) Echocardiogram: CHF systolic HF (EF: 20 to 25%) Consulted cardiology * Management strategy is rate control, anticoagulation, cardioversion in approximately 3 to 4 weeks, per cardiology * Toprol 25 mg bid - dose increased today to 50 mg twice daily after 1 administration of a.m. 25 mg dose; p.o. digoxin 0.25 mg x 2 administrations today. * Subsequent echocardiogram to be obtained prior to discharge for comparison Cardiomyopathy Severe, EF: 20-25%, no evidence of ischemia on echo, no evidence of fluid overload on physical exam, CHF on echo * Metoprolol, digoxin, as above * Comparative echo to be obtained prior to discharge * Further intervention dependent on echo findings * Continue to monitor HTN * Metoprolol, digoxin as above Concern of sleep apnea * consider sleep study as outpatient (2) Cardiomyopathy: (3) Hypertension: (4) Hepatic steatosis: Admission and Anticipated Discharge Date Admission Date: April 14, 2021 Supervising Physician Co-Signing Physician Notes Resident Physician Supervision Note: I independently interviewed and examined the patient and verified the bolaños history and physical, reviewed labs and image studies and agree with resident Dr. Urbano findings and care plan. Subjective Per telemetry: Patient continues to be in atrial fibrillation with rapid ventricular rates into the 140s. Patient is awake, alert and sitting up in bed this morning. He denies any sensation of palpitations at the moment. Upon review of his medical history, he corroborates most of the story on admission. He admits to PICKENS, and to palpitations. In addition, he also admits to multiple episodes of paroxysmal nocturnal dyspnea that started approximately 2 months ago. These episodes are intermittent, and has not required propping himself up in an angled position to sleep. He denies any incidences of pedal edema, chest pain radiating to the arm or jaw, family/personal medical history of diabetes, heart failure or other ischemic or nonischemic cardiomyopathy. Review of Systems Review of Systems: All systems reviewed & are unremarkable except as noted in HPI & below Physical Exam Constitutional: WD/WN, vitals as above Respiratory: Auscultation: + crackles (Mild; bibasilar left greater than right); no wheezes Cardiovascular: Rate/Rhythm: + tachycardic and + irregularly irregular Heart Sounds: no murmur Gastrointestinal (Abdomen): normal bowel sounds, soft, nontender, no hepatosplenomegaly Musculoskeletal: no cyanosis or clubbing, extremities motor strength 5/5 Results & Data Results & Data ([facility]) Vital Signs (Past 12 Hours) Vital Signs Temp Pulse Pulse Resp BP BP BP 04/15/21 15:24 146 H 04/15/21 12:53 146 H 04/15/21 12:46 37.0 C 149 H 24 122/86 120/82 04/15/21 08:20 146 H 111/77 04/15/21 08:00 37.0 C 138 H 20 115/71 04/15/21 07:06 128 H Pulse Ox 04/15/21 15:24 04/15/21 12:53 04/15/21 12:46 94 04/15/21 08:20 04/15/21 08:00 95 04/15/21 07:06 Resident Activity Tracking Resident Involvement: Resident Care Provided Care Provided: Adult Hospital Medicine
[2021-04-15] MEDS ORDERED: METOPROLOL SUCC 25MG EXT REL TAB PO STA (16:04)
--- NOTE | 2021-04-15 16:10 | Electrocardiogram Report ---
Test Reason : Blood Pressure : / mmHG Vent. Rate : 187 BPM Atrial Rate : 202 BPM P-R Int : 000 ms QRS Dur : 086 ms QT Int : 224 ms P-R-T Axes : 000 -12 082 degrees QTc Int : 395 ms Atrial fibrillation with rapid ventricular response Nonspecific ST and T wave abnormality Abnormal ECG No previous ECGs available Confirmed by Richard Bowers ([id number]) on 04/15/2021 4:09:38 PM Referred By: REFERRED SELF Confirmed By:Richard Bowers
[2021-04-15] MEDS: METOPROLOL SUCC 50MG EXT REL TAB PO SCH (19:48)
[2021-04-15] MEDS ORDERED: METOPROLOL TARTRATE 50 MG TAB PO STA (23:53)
[2021-04-16] MEDS: MELATONIN 3 MG TAB PO PRN (00:06)
[2021-04-16 07:27] LABS: BUN Creatinine Ratio 18.7 (10-20); Calcium 8.7 mg/dl (8.5-10.1); Creatinine Clr Calc Pharmacy 85.8 ml/min; Est GFR (African American) 86.3 ml/min; Est GFR (Non-African American) 74.4 ml/min; Potassium 3.9 mmol/L (3.5-5.1)
[2021-04-16] MEDS: ASCORBIC ACID 500 MG TAB PO SCH (08:28)
[2021-04-16] MEDS: METOPROLOL SUCC 50MG EXT REL TAB PO SCH ×2 (08:28→19:41)
--- NOTE | 2021-04-16 09:21 | Cardiology Progress Note ---
Date of Service April 16, 2021 Assessment & Plan (1) Atrial fibrillation, new onset: (2) Cardiomyopathy: (3) Hypertension: Plan: 1. Atrial fibrillation: From his history I cannot be sure how long he has been in atrial fibrillation. It has been at least 3 to 5 days before admission but I suspect longer. Since he does not have palpitations and we are relying on when he developed shortness of breath this could have occurred due to left ventricular dysfunction and may have occurred sometime after the arrhythmia began. The heart rate has been very fast and we need better rate control although it is improving with digoxin and beta-blockade. My recommendation remains rate control, anticoagulation and cardioversion in 3 to 4 weeks. I am increasing his digoxin and metoprolol today. 2. Cardiomyopathy: He has a quite severe cardiomyopathy but he does not seem to be in congestive heart failure. The only symptom that I can elicit is exertional shortness of breath which could be the arrhythmia or the left ventricular function, he does have a vague history of waking up at night which could be PND but does not fit the fact that he does not seem to be fluid overloaded. I am hopeful that the cardiomyopathy is primarily related to the rapid heart rate. Since we do not have any evidence of ischemia I would not investigate further at this time although if his ejection fraction does not quickly improve we may be forced to look for other causes of cardiomyopathy. I am going to plan on getting a limited echo prior to discharge to see what there has been some improvement. In the meantime I would treat him with metoprolol succinate and digoxin, I am holding off on GARY or ARB therapy at the moment although with his improving if he does not develop kidney function hypotension with rate control we can gradually add that to his regimen. 3. Hypertension: He has a history of hypertension, that corrected with minimal medications. We may be able to control his blood pressure and heart rate just with beta-blockade but the edition GARY or ARB beneficial, might be beneficial for his cardiomyopathy, but I would wait until we have his rate control before adding one. Admission and Anticipated Discharge Date Admission Date: April 14, 2021 Subjective Although he feels better than he did before presentation he is still quite short of breath with minimal activities such as walking to the bathroom. He was also having some GI complaints. He denies lightheadedness or dizziness. Physical Exam Physical Exam: Constitutional: Alert, cooperative and in no distress. HEENT: Unremarkable Neck: No jugular venous distention, carotid pulses are irregular but otherwise normal and equal bilaterally without bruits. Pulmonary: Clear to auscultation bilaterally. Cardiac: Irregular rapid rhythm with no murmur, gallop or rub. Abdomen: Soft, nontender with normal bowel sounds. Extremities: No edema. Distal pulses intact. Neurologic: No focal findings. Gait was not tested. Skin: No rash, ecchymoses or petechiae. Results & Data ([facility]) Vital Signs (Past 12 Hours) Vital Signs Temp Pulse Pulse Resp BP Pulse Ox 04/16/21 07:49 36.8 C 92 H 18 126/92 95 04/16/21 03:54 36.7 C 100 H 16 121/82 95 04/15/21 22:47 36.4 C L 100 H 20 128/90 98 Laboratory Results Comprehensive Metabolic Panel 04/16/21 Range/Units 05:46 Sodium 141 (136-145) mmol/L Potassium 3.9 D (3.5-5.1) mmol/L Chloride 112 H (98-107) mmol/L Carbon Dioxide 21 (21-32) mmol/L BUN 20 H (7-18) mg/dl Creatinine 1.09 (0.6-1.4) mg/dl Glucose 98 (70-99) mg/dl Calcium 8.7 (8.5-10.1) mg/dl Intake and Output 04/15/21 04/16/21 04/16/21 22:59 06:59 14:59 Intake Total 876 / 1581.333 200 / 1581.333 Balance 876 / 1581.333 200 / 1581.333 Intake: IV 776 / 1281.333 Nss + 20Meq KCl 20 meq In 1,000 776 / 1281.333 ml @ 80 mls/hr IV .[id number] BENJAMÍN Rx#:[id number] Oral 100 / 300 200 / 300 Other: # Unmeasured Voids 1 2 Weight 95.7 kg Weight Measurement Method [facility] 0.8 today Diagnostic Findings An electrocardiogram today demonstrates atrial fibrillation at a heart rate of [address]-T abnormalities. Telemetry: Atrial fibrillation with better heart rate control but still elevated, Averaging about 100 bpm overnight and 120 bpm this morning PG Care Time/CCT Total # of Minutes Spent Total Time Spent with Patient: Total time spent is greater than 50% in coordination of care (as documented) at patient's floor/unit and/or counseling patient: Coding Level of Care Code 39114 Subseq Hosp Care Lvl 3 Diagnoses Atrial fibrillation, new onset I48.91 Cardiomyopathy I42.9 Cardiomyopathy type: unspecified Hypertension I10 (1) Cardiomyopathy Cardiomyopathy type: unspecified Qualified Code(s): I42.9 - Cardiomyopathy, unspecified
[2021-04-16] MEDS: APIXABAN 5 MG TABLET PO SCH ×2 (09:39→19:40)
[2021-04-16] MEDS ORDERED: DIGOXIN 0.125 MG TAB PO ONE (11:35)
[2021-04-16] MEDS ORDERED: METOPROLOL SUCC 25MG EXT REL TAB PO STA ×2 (11:36→14:01)
--- NOTE | 2021-04-16 13:23 | Electrocardiogram Report ---
Test Reason : Blood Pressure : / mmHG Vent. Rate : 085 BPM Atrial Rate : 076 BPM P-R Int : 000 ms QRS Dur : 084 ms QT Int : 358 ms P-R-T Axes : 000 029 094 degrees QTc Int : 426 ms Poor data quality, interpretation may be adversely affected Atrial fibrillation Low voltage QRS Abnormal QRS-T angle, consider primary T wave abnormality Abnormal ECG When compared with ECG of 14-APR-2021 11:51, (unconfirmed) Vent. rate has decreased BY 102 BPM Confirmed by Richard Bowers ([id number]) on 04/16/2021 1:22:45 PM Referred By: REFERRED SELF Confirmed By:Richard Bowers
--- NOTE | 2021-04-16 20:32 | Hospitalist Progress Note ---
Date of Service April 16, 2021 Assessment & Plan (1) Atrial fibrillation with RVR: Plan: Atrial fibrillation with RVR IV diltiazem drip started, then transition to Lopressor IV Lopressor stopped due to hypotension, IV digoxin given (250 mcg) Echocardiogram: CHF systolic HF (EF: 20 to 25%) Consulted cardiology * Management strategy is rate control, anticoagulation, cardioversion in approximately 3 to 4 weeks, per cardiology * Toprol dose increased to 100 mg twice daily; digoxin dose reduced to 0.125 mg every afternoon; apixaban 5mgs bid. Cardiomyopathy Severe, EF: 20-25%, no evidence of ischemia, CHF on echo, per cardiology. * Metoprolol, digoxin doses adjusted. See above * Comparative echo to be obtained prior to discharge * Further intervention dependent on echo findings * Continue to monitor HTN * See above for recent metoprolol, digoxin dose adjustments. Concern of sleep apnea * Nocturnal pulse oximetry ordered; will review findings in a.m. * Consider outpatient sleep study if nocturnal pulse oximetry findings noncontributory. Apixaban Full code (2) Cardiomyopathy: (3) Hypertension: (4) Hepatic steatosis: Admission and Anticipated Discharge Date Admission Date: April 14, 2021 Supervising Physician Co-Signing Physician Notes Resident Physician Supervision Note: I independently interviewed and examined the patient and verified the bolaños history and physical, reviewed labs and image studies and agree with resident Dr. Urbano findings and care plan. Subjective Per telemetry: Atrial fibrillation with heart rates in the 130s overnight and this morning. Patient is in the restroom. When seen afterwards, he has no concerns or questions. Review of Systems Review of Systems: All systems reviewed & are unremarkable except as noted in HPI & below Physical Exam Constitutional: WD/WN, vitals as above Respiratory: Auscultation: + crackles (Mild; bibasilar left greater than right); no wheezes Cardiovascular: Rate/Rhythm: + tachycardic and + irregularly irregular Heart Sounds: no murmur Vessels: + JVD Gastrointestinal (Abdomen): normal bowel sounds, soft, nontender, no hepatosplenomegaly Musculoskeletal: no cyanosis or clubbing, extremities motor strength 5/5 Results & Data Results & Data ([facility]) Vital Signs (Past 12 Hours) Vital Signs Temp Pulse Pulse Pulse Resp BP BP 04/16/21 19:22 36.6 C 95 H 16 137/89 12/15/21 15:37 36.4 C L 76 17 124/86 04/16/21 12:48 142 H 04/16/21 11:42 36.6 C 101 H 17 122/90 Pulse Ox 04/16/21 19:22 95 04/16/21 15:37 96 04/16/21 12:48 04/16/21 11:42 94 Resident Activity Tracking Resident Involvement: Resident Care Provided Care Provided: Adult Hospital Medicine (1) Cardiomyopathy Cardiomyopathy type: unspecified Qualified Code(s): I42.9 - Cardiomyopathy, unspecified
[2021-04-16] MEDS ORDERED: METOPROLOL SUCC 25MG EXT REL TAB PO SCH (21:00)
[2021-04-17] MEDS: ASCORBIC ACID 500 MG TAB PO SCH (08:04)
[2021-04-17] MEDS: APIXABAN 5 MG TABLET PO SCH (08:04)
[2021-04-17] MEDS: METOPROLOL SUCC 50MG EXT REL TAB PO SCH (08:05)
--- NOTE | 2021-04-17 08:53 | Hospitalist Progress Note ---
Date of Service April 17, 2021 Assessment & Plan (1) Atrial fibrillation with RVR: Plan: Atrial fibrillation with RVR IV diltiazem drip started, then transitioned to Lopressor IV Lopressor stopped due to hypotension, IV digoxin given (250 mcg) Echocardiogram: CHF systolic HF (EF: 20 to 25%) Consulted cardiology * continue rate control meds - Toprol 100 mg twice daily; digoxin 0.125 mg every afternoon (approximately 1600); * anticoagulation with apixaban 5 mg bid. * repeat echo with worsening EF * For OMAR, cardioversion in am. followed by [facility] Cardiomyopathy Initial echo 04/14/2021: Severely reduced LV systolic function, EF: 20-25%, no evidence of ischemia, CHF on imaging. Repeat echo 04/17/2021: EF 15 to 20% with severely reduced LV systolic function, severe global LV hypokinesis. More urgent management indicated. * Metoprolol, digoxin doses as above * Transesophageal echo, intracardiac catheterization scheduled for 04/18/[address] Quesada, and Justus respectively. * Continue to monitor HTN * Toprol, digoxin as above. Concern of sleep apnea * Nocturnal pulse oximetry ordered; 54 desaturations overnight in 7 hours of sleep. 7.7 desaturations per hour. C/f GABRIEL, CSA. DVT Prophylaxis: Apixaban Code status: Full code (2) Cardiomyopathy: (3) Hypertension: (4) Hepatic steatosis: Admission and Anticipated Discharge Date Admission Date: April 14, 2021 Supervising Physician Co-Signing Physician Notes Resident Physician Supervision Note: I independently interviewed and examined the patient and verified the bolaños history and physical, reviewed labs and image studies and agree with resident Dr. Urbano findings and care plan. Subjective Per telemetry: Patient remains in atrial fibrillation with rate into the 130s. Patient rates dropped to the 1 teens overnight. Otherwise, no other changes. Patient lying flat in bed this morning, asleep. He reports continued exertional dyspnea and left-sided chest pain without radiation. He denies orthostatic dizziness, syncopal episodes, presyncope, or shortness of breath at rest. Review of Systems Review of Systems: All systems reviewed & are unremarkable except as noted in HPI & below Physical Exam Constitutional: WD/WN, vitals as above Neck: + thick neck Respiratory: normal respiratory effort, lungs clear to auscultation Cardiovascular: Rate/Rhythm: + irregularly irregular Heart Sounds: no murmur Extremities: normal capillary refill; no pedal edema Gastrointestinal (Abdomen): normal bowel sounds, soft, nontender, no hepatosplenomegaly Results & Data Results & Data ([facility]) Vital Signs (Past 12 Hours) Vital Signs Temp Pulse Pulse Pulse Pulse Resp BP 04/17/21 07:09 37.2 C 77 19 146/87 H 04/17/21 04:09 36.8 C 112 H 16 127/69 04/17/21 01:50 118 H 04/16/21 23:22 122 H 04/16/21 23:07 36.5 C 86 18 138/89 04/16/21 21:40 90 Pulse Ox Pulse Ox 04/17/21 07:09 93 04/17/21 04:09 95 04/17/21 01:50 96 04/16/21 23:22 04/16/21 23:07 92 04/16/21 21:40 99 Resident Activity Tracking Resident Involvement: Resident Care Provided Care Provided: Adult Hospital Medicine (1) Cardiomyopathy Cardiomyopathy type: unspecified Qualified Code(s): I42.9 - Cardiomyopathy, unspecified
[2021-04-17 09:01] LABS: BUN Creatinine Ratio 11.9 (10-20); Calcium 8.8 mg/dl (8.5-10.1); Creatinine Clr Calc Pharmacy 80.6 ml/min; Est GFR (African American) 80.9 ml/min; Est GFR (Non-African American) 69.8 ml/min; Potassium 4.1 mmol/L (3.5-5.1)
--- NOTE | 2021-04-17 10:27 | XCELERA ---
[id number]
--- NOTE | 2021-04-17 11:19 | Cardiology Progress Note ---
Date of Service April 17, 2021 Assessment & Plan (1) Atrial fibrillation, new onset: (2) Cardiomyopathy: (3) Hypertension: Plan: 1. Atrial fibrillation: From his history I cannot be sure how long he has been in atrial fibrillation. It has been at least 3 to 5 days before admission but I suspect longer. Since he does not have palpitations and we are relying on when he developed shortness of breath this could have occurred due to left ventricular dysfunction and may have occurred sometime after the arrhythmia began. The heart rate has been very fast and with digoxin and high-dose beta- blockers we cannot control the rate adequately, with his severe LV dysfunction and heart failure I am reluctant to add diltiazem to his regimen. I think the best option would be to try to convert the rhythm, otherwise I am afraid his left ventricular function will not improve. He will need a OMAR to do that. I talked to him about it and he is agreeable and we will arrange this for tomorrow morning. 2. Cardiomyopathy: He has a quite severe cardiomyopathy but he does not seem to be in severe congestive heart failure. The only symptom that I can elicit is exertional shortness of breath which could be the arrhythmia or the left ventricular function, he does have a vague history of waking up at night which could be PND but does not fit the fact that he does not seem to be fluid overloaded. I am hopeful that the cardiomyopathy is primarily related to the r apid heart rate. I am concerned that if I cannot get his heart rate under control he will not have improvement in his cardiomyopathy and medications have not been effective as noted above. His left ventricular function did not improve at all even with some degree of rate control, this could indicate that the cardiomyopathy is due to some other cause although it could just take some time and better rate control to improve. Still I think we would probably be best served to exclude coronary disease as a cause of his cardiomyopathy and I have discussed cardiac catheterization with him and he is agreeable. We will do this tomorrow after cardioversion. 3. Hypertension: He has a history of hypertension, that corrected with minimal medications. We may be able to control his blood pressure and heart rate just with beta-blockade but the edition GARY or ARB beneficial, might be beneficial for his cardiomyopathy, but I would wait until we have his rate control before adding one. Admission and Anticipated Discharge Date Admission Date: April 14, 2021 Subjective He continues to feel extremely short of breath when he ambulates including to the bathroom, at rest he does not feel badly and he does not have orthopnea or PND. He has no sensation of palpitations and does not have lightheadedness or dizziness. Physical Exam Physical Exam: Constitutional: Alert, cooperative and in no distress. HEENT: Unremarkable Neck: No jugular venous distention, carotid pulses are irregular but otherwise normal and equal bilaterally without bruits. Pulmonary: Clear to auscultation bilaterally. Cardiac: Irregular rapid rhythm with no murmur, gallop or rub. Abdomen: Soft, nontender with normal bowel sounds. Extremities: No edema. Distal pulses intact. Neurologic: No focal findings. Gait was not tested. Skin: No rash, ecchymoses or petechiae. Results & Data ([facility]) Vital Signs (Past 12 Hours) Vital Signs Temp Pulse Pulse Pulse Pulse Resp BP 04/17/21 07:09 37.2 C 77 19 146/87 H 04/17/21 04:09 36.8 C 112 H 16 127/69 04/17/21 01:50 118 H 04/16/21 23:22 122 H Pulse Ox Pulse Ox 04/17/21 07:09 93 04/17/21 04:09 95 04/17/21 01:50 96 04/16/21 23:22 Laboratory Results Comprehensive Metabolic Panel 04/17/21 Range/Units 08:08 Sodium 141 (136-145) mmol/L Potassium 4.1 (3.5-5.1) mmol/L Chloride 111 H (98-107) mmol/L Carbon Dioxide 22 (21-32) mmol/L BUN 14 (7-18) mg/dl Creatinine 1.15 (0.6-1.4) mg/dl Glucose 116 H (70-99) mg/dl Calcium 8.8 (8.5-10.1) mg/dl Intake and Output 04/16/21 04/17/21 04/17/21 22:59 06:59 14:59 Intake Total 175 / 1015 240 / 1015 Output Total 375 / 615 Balance -200 / 400 240 / 400 Intake: Oral 175 / 1015 240 / 1015 Output: Urine 375 / 615 Other: # Unmeasured Voids 2 Weight 93.9 kg Weight Measurement Method Built in Bedscale Diagnostic Findings Telemetry: Atrial fibrillation with an average heart rate of about 110 bpm. No bradycardia. PG Care Time/CCT Total # of Minutes Spent Total Time Spent with Patient: Total time spent is greater than 50% in coordination of care (as documented) at patient's floor/unit and/or counseling patient: Coding Level of Care Code 93389 Subseq Hosp Care Lvl 3 Diagnoses Atrial fibrillation, new onset I48.91 Cardiomyopathy I42.9 Cardiomyopathy type: unspecified Hypertension I10 (1) Cardiomyopathy Cardiomyopathy type: unspecified Qualified Code(s): I42.9 - Cardiomyopathy, unspecified
[2021-04-17] MEDS ORDERED: DIGOXIN 0.125 MG TAB PO SCH (16:00)
[2021-04-18] MEDS: METOPROLOL TARTRATE 50 MG TAB PO PRN ×2 (00:28→12:07)
--- NOTE | 2021-04-18 06:43 | Hospitalist Progress Note ---
Date of Service April 18, 2021 Assessment & Plan (1) Atrial fibrillation with RVR: Plan: Atrial fibrillation with RVR IV diltiazem drip started, then transitioned to Lopressor IV Lopressor stopped due to hypotension, IV digoxin given (250 mcg) Echocardiogram: CHF systolic HF (EF: 20 to 25%) Consulted cardiology * continue rate control meds - Toprol 100 mg twice daily; digoxin 0.125 mg every afternoon (approximately 1600); * anticoagulation with apixaban 5 mg bid. * repeat echo with worsening EF * Cardioversion today was successful in converting the rhythm but it held very briefly and he quickly reverted back to atrial fibrillation * [facility] summary: Mild to moderate nonobstructive coronary artery disease, 50% mid LAD, 40 to 50% mid circumflex, Borderline intracardiac filling pressure * Cardiology recommendation: Continue rate/rhythm control for atrial fibrillation with RVR Continue anticoagulation with apixaban Continued guideline directed medical therapy for nonischemic cardiomyopathy Continued ASCVD risk factor modification * Started on IV amiodarone 360 mg every 12 hours following catheterization. Cardiomyopathy Initial echo 04/14/2021: Severely reduced LV systolic function, EF: 20-25%, no evidence of ischemia, CHF on imaging. Repeat echo 04/17/2021: EF 15 to 20% with severely reduced LV systolic function, severe global LV hypokinesis. More urgent management indicated. * Metoprolol, digoxin doses as above * Transesophageal echo, intracardiac catheterization 04/18/2021: See results above HTN * Toprol, digoxin as above. Concern of sleep apnea * Nocturnal pulse oximetry ordered; 54 desaturations overnight in 7 hours of sleep. 7.7 desaturations per hour. C/f GABRIEL, CSA. * will need to arrange night time O2 on discharge * Recommend further outpatient evaluation of sleep apnea. DVT Prophylaxis: Apixaban Code status: Full code (2) Cardiomyopathy: (3) Hypertension: (4) Hepatic steatosis: Admission and Anticipated Discharge Date Admission Date: April 14, 2021 Supervising Physician Co-Signing Physician Notes Resident Physician Supervision Note: I independently interviewed and examined the patient and verified the bolaños history and physical, reviewed labs and image studies and agree with resident Dr. Urbano findings and care plan. Subjective Per telemetry: Atrial fibrillation with RVR into the 140s and as high as the 170s overnight. Patient already down to the Log Sorting Supervisor this morning. On revisiting, he is feeling much better this morning. He denies palpitations. He has no other concerns at this time. Review of Systems Review of Systems: All systems reviewed & are unremarkable except as noted in HPI & below Physical Exam Constitutional: WD/WN, vitals as above Respiratory: normal respiratory effort, lungs clear to auscultation Cardiovascular: Rate/Rhythm: + irregularly irregular Gastrointestinal (Abdomen): normal bowel sounds, soft, nontender, no hepatosplenomegaly Results & Data Results & Data ([facility]) Vital Signs (Past 12 Hours) Vital Signs Temp Pulse Pulse Pulse Resp BP Pulse Ox 04/18/21 03:08 36.5 C 96 H 24 124/88 95 04/18/21 00:23 125 H 04/17/21 23:13 37.2 C 89 20 111/81 96 04/17/21 19:51 37.0 C 104 H 24 129/85 91 Resident Activity Tracking Resident Involvement: Resident Care Provided Care Provided: Adult Hospital Medicine (1) Cardiomyopathy Cardiomyopathy type: unspecified Qualified Code(s): I42.9 - Cardiomyopathy, unspecified
[2021-04-18] MEDS ORDERED: BENZOCAINE/TETRACAIN/BUTAM 50 APPLN/5 GM CAN EXT ONE (07:32)
--- NOTE | 2021-04-18 07:53 | Pre Anesthesia Assessment ---
Date of Service April 18, 2021 Pre Sedation Assessment Vital Signs Temp Pulse Pulse Pulse Resp BP BP 04/18/21 07:00 141 H 20 132/102 H 04/18/21 03:08 97.7 F 96 H 24 124/88 04/18/21 00:23 125 H 04/17/21 23:13 99.0 F 89 20 111/81 04/17/21 19:51 98.6 F 104 H 24 129/85 04/17/21 16:00 98.1 F 105 H 18 125/87 04/17/21 11:48 97.9 F 116 H 19 133/90 Pulse Ox 04/18/21 07:00 96 04/18/21 03:08 95 04/18/21 00:23 04/17/21 23:13 96 04/17/21 19:51 91 04/17/21 16:00 95 04/17/21 11:48 97 Cardiovascular + tachycardic and + irregularly irregular Respiratory normal respiratory effort, lungs clear to auscultation Pre-Sedation Airway Assessment Smoking Status: Never smoker Hx Sleep Apnea: No Hx Difficult Intubation: No Short, Thick Neck: Yes Thyromental Distance: < 3.5 Finger Breadths Oral Cavity: + WNL Mallampati Class: III ASA: ASA2 NPO Status Date of Last Intake of Fluids: 04/17/21 Time of Last Intake of Fluids: 19:00 Date of Last Intake of Solid Food: 04/17/21 Time of Last Intake of Solid Foods: 19:00 Procedure Planning Contraindications for Sedation: none Current Medications Reviewed: Yes Notes The planned sedation has been discussed with the patient. Informed Consent was obtained. I have identified the patient, determined the appropriateness of sedation and have assessed the patient immediately prior to the procedure. All medicine(s) and interventions are by my order.
--- NOTE | 2021-04-18 07:54 | Anesthesiology Consultation ---
Date of Service April 18, 2021 Assessment & Plan Chart Review Chart Review: Acceptable Risk for Surgery and Patient NOT seen in Pre Admission Testing Consults Requested none ASA ASA4 Proposed Anesthesia Anesthesia Type: MAC Risk / Benefits Reviewed With: PT / POA / Parent / Guardian, Accepts Plan and Informed Consent Obtained History Surgery Operation Date: 04/18/21 07:15 Proposed Procedures p Transesophageal Echo w/Anesthesia - Ciro Jerome MD s Cardioversion Hide Or Skin Buffer w/Anesthesia - Ciro Jerome MD Operation Date: 04/18/21 07:45 Proposed Procedures p Cardiac Cath Procedure - Ciro Jerome MD Height/Weight Height: 5 ft 10 in Weight: 92.2 kg Allergies Allergy/AdvReac Type Severity Reaction Status Date / Time No Known Allergies Allergy Verified 03/14/21 12:57 Medications Home Medications Medication Instructions Recorded Confirmed Last Taken ascorbic acid (vitamin C) 1,000 mg 1 gm PO DAILY tab 10/13/18 04/14/21 Unknown tablet Active Medications Generic Name Dose Route Start Last Admin Trade Name Freq PRN Reason Stop Dose Admin Apixaban 5 mg 04/14/21 21:00 04/17/21 08:04 Apixaban 5 Mg Tablet PO 05/14/21 20:59 5 mg BID BENJAMÍN Administration Ascorbic Acid 1,000 mg 04/15/21 09:00 04/17/21 08:04 Ascorbic Acid 500 Mg Tab PO 05/15/21 08:59 1,000 mg DAILY BENJAMÍN Administration Melatonin 3 mg 04/15/21 09:17 04/16/21 00:06 Melatonin 3 Mg Tab PO 05/15/21 09:16 3 mg HS PRN Administration Sleep Metoprolol Succinate 100 mg 04/16/21 21:00 04/17/21 08:05 Metoprolol Succ 50mg Ext Rel Tab PO 05/16/21 20:59 100 mg BID BENJAMÍN Administration Metoprolol Tartrate 50 mg 04/16/21 19:28 04/18/21 00:28 Metoprolol Tartrate 50 Mg Tab PO 05/16/21 19:27 50 mg PRN PRN Administration Hypertension Protocol Past Medical History Medical History Allergic rhinitis Hepatic steatosis CT Abd//pelvis 07/2017 Exercise / Class Metabolic Activity II 4-5 Yardwork/Stairs/Walk up hill Past Family History Family History Brother Diabetes Obesity Other Colonic polyp Past Surgical History Surgical History S/P colonoscopy (05/18/16) Benign cystic lesion at hepatic flexure, Aspirate negative for malignancy. Recommend repeat colonoscopy . S/P tonsillectomy Past Anesthesia History No Hx of Anesthesia Complications and No Family Hx of Anesthesia Complications History of PONV No Hx of PONV and No Hx of Motion Sickness Social History Smoking Status: Never smoker Hx Alcohol Use: No Hx Substance Use: No Physical Exam Vital Signs Last Vital Signs Temp 36.5 C 04/18/21 03:08 Pulse 141 H 04/18/21 07:00 Resp 20 04/18/21 07:00 BP 132/102 H 04/18/21 07:00 Pulse Ox 96 04/18/21 07:00 Constitutional + obese ENMT Mouth: no dentition abnormality Thyromental Distance: > or= 3.5 Finger Breadths Mallampati Class: II Neck normal visual inspection Respiratory normal respiratory effort Auscultation: lungs clear to auscultation bilaterally Cardiovascular Rate/Rhythm: + tachycardic; + abnormal rate and + abnormal rhythm Psychiatric Orientation: alert Testing Laboratory Results 04/15/21 07:01 04/17/21 08:08 PT 11.0 Seconds (9.0-12.0) 04/14/21 11:55 INR 1.1 (0.9-1.1) 04/14/21 11:55 APTT 24.4 Seconds (21.0-31.0) 04/14/21 11:55
[2021-04-18] MEDS ORDERED: HEPARIN (PORCINE) 1000 UNIT/ML 10 ML (CATH LAB USE ONLY) ONE (07:55)
[2021-04-18] MEDS ORDERED: niCARdipine HCL INJ 2.5 MG/ML 10 ML AMP ONE (07:55)
[2021-04-18] MEDS ORDERED: fentaNYL citrate 100 MCG/2 ML VIAL ONE (07:55)
[2021-04-18] MEDS ORDERED: MIDAZOLAM HCL 1 MG/ML 2ML VIAL ONE (07:55)
[2021-04-18] MEDS ORDERED: NITROGLYCERIN/D5W 100MCG/ML 20ML SYR ONE (07:56)
--- NOTE | 2021-04-18 07:59 | Cardioversion ---
Date of Service April 18, 2021 PG Electrical Cardioversion Rp Electrical Cardioversion Report OMAR-Electrical Cardioversion Indication: Atrial fibrillation with RVR Procedure: - Anesthesia with propofol per Dr. Govea - OMAR performed revealed no left atrial thrombus - Pads placed in AP position. - Received 4 synchronized shocks at 200J, 300J, 360J, 360J. - Converted to sinus rhythm briefly after final shocks but converted back to atrial fibrillation rhythm within < 20 seconds. - Patient tolerated procedure well but remained in AF with RVR. Summary: 1. Unsuccessful electrical external cardioversion with failure to maintain sinus rhythm. Recommendations: Continue anticoagulation Continued rate control, antiarrhythmics per Dr. Bowers. Coding Level of Care Code Cardioversion, elective Additional Codes Electrical Cardioversion Report ([id number])
--- NOTE | 2021-04-18 08:44 | Cardiac Catheterization ---
[facility] Data: Trade Specialist Cardiac Status Clinical evaluation leading to the procedure CAD Presenation: Sx unlikely to be ischemic Anginal Classification: No Symptoms Heart Failure: NYHA Class: CCS IV Cardiogenic Shock within 24 Hours: No Cardiac Arrest within 24 Hours: No Imaging Studies Past 6 Months: Yes Stress Studies Past 6 Months: No Diagnostic Physicians Name: Vick Jerome MD Status: Elective Closure Device Percutaneous Entry Location: Radial Closure Device: Radial Band Recommendations: Medical Therapy and/or Counseling Intraprocedure Events Significant Disection: No Perforation: No Cardiac Cath Procedure Full Procedure Date April 18, 2021 Pre-Procedure Diagnosis Pre-Procedure Diagnosis: CHF and Arrhythmia AUC Score AUC Score: 7 Post-Procedure Diagnosis Post-Procedure Diagnosis: Moderate CAD and Elevated Intracardiac Pressures Procedure(s) Performed Procedure(s) Performed: Coronary Angiography and Left Heart Cath Pile Driver Operator Vick Jerome MD Supervisor Properties(s) Makenzier Estimated Blood Loss Estimated Blood Loss: 5 Medication(s) Medication(s): Fentanyl, Lidocaine 1%, Nicardipine, Nitroglycerin and Versed Summary of Findings Indication: New cardiomyopathy, acute systolic heart failure Access: 6 Fr right radial artery Catheters: Aurora, diagnostic JR4 Findings: LM -large caliber, no significant disease LAD -medium caliber vessel, 50% focal mid LAD stenosis. Distal vessel without significant disease and wraps around apex. Large D1 without disease. Circumflex -medium caliber, nondominant, 40 to 50% mid segment disease. RCA -dominant, large caliber vessel, mid segment luminal regularities. Right PDA and large PLB without significant disease. LVEDP -18 Arterial Closure: TR band Summary: 1. Mild to moderate nonobstructive coronary artery disease -50% mid LAD 40 to 50% mid circumflex 2. Borderline intracardiac filling pressure Recommendations: Continue rate/rhythm control for atrial fibrillation with RVR Continue anticoagulation with apixaban Continued guideline directed medical therapy for nonischemic cardiomyopathy Continued ASCVD risk factor modification Hemodynamics Rest Ao:: 109/77/93 Final Ao: 120/75/91 LV: 104/18 Recommendations Recommendations: Medical Therapy and/or Counseling Specimens Specimens: None Radiation Exposure (mGy) 636 Contrast (mls) 25 Fluids (cc crystalloids) Fluids (cc crystalloids): 25 Drains Drains: none Anesthesia moderate [id number] Procedural Complication(s) None Disposition PCU I attest to the content of the Intraoperative Record and any orders documented therein. Any exceptions are noted below. [facility] Card Cath Procedure Codes Cardiac Catheterization Procedure 1: Cardiovascular Cath Procedures: 69427 Coronaries and LHC (+/-LV) Moderate Sedation Procedure 1: Sedation/Anesthesia: 74351 Mod Sedation by the same physician;Init15 Min Child Age 5 & Up PG Care Time/CCT Total # of Minutes Spent Total Time Spent with Patient: Total time spent is greater than 50% in coordination of care (as documented) at patient's floor/unit and/or counseling patient:
--- NOTE | 2021-04-18 08:45 | Post Anesthesia Assessment ---
Date of Service April 18, 2021 Post Sedation Assessment Vital Signs Temp Pulse Pulse Pulse Resp BP BP 04/18/21 08:00 98.2 F 81 20 127/67 04/18/21 07:00 141 H 20 132/102 H 04/18/21 03:08 97.7 F 96 H 24 124/88 04/18/21 00:23 125 H 04/17/21 23:13 99.0 F 89 20 111/81 04/17/21 19:51 98.6 F 104 H 24 129/85 04/17/21 16:00 98.1 F 105 H 18 125/87 04/17/21 11:48 97.9 F 116 H 19 133/90 Pulse Ox 04/18/21 08:00 92 04/18/21 07:00 96 04/18/21 03:08 95 04/18/21 00:23 04/17/21 23:13 96 04/17/21 19:51 91 04/17/21 16:00 95 04/17/21 11:48 97 Recovery Score Activity: Moves 4 extremities Respiration: Deep Breath/Cough Circulation: +/-20% PreAnes Value Consciousness: Fully Awake Oxygen Saturation: O2 needed for >90% Discharge Sedation Level of Care: Fast Track Phase II Post Sedation Plan On clinical assessment, the patient appears to have tolerated the sedation without complications. Patient is recovering as anticipated. Patient will continue to be monitored by nursing and may be discharged when sedation discharge criteria are met per below protocol. Upon Completions of procedure up to 15 minutes continue every 5 minute vital signs and the P.A.R. score; then discharge to a Phase I or Fast Track to Phase II per the following guidelines: * Discharge Patient to appropriate Phase II area if PAR is 8 or greater or return to pre- procedure baseline. The post - procedure orders will be as directed. * If PAR score is less than 8 or not return to pre-procedure baseline then patient will follow Phase I monitoring till PAR is reached for Phase II. The Phase I may be done in procedure room or may call to secure a Phase I area. * If naloxone or flumazenil are used for reversal, hold in Phase I for continued monitoring from when last reversal dose was given for a minimum of 60 minutes or longer pending the nurse and/or physician discretion of patient condition before discharge to Phase II. Please call the Sedation Physician to re-evaluate and complete post-note for discharge to Phase II area. Do NOT discharge from procedure sedation or Phase 1 until post- sedation evaluation note is complete by procedure /sedation MD Sedation Discharge Instructions to be given to the patient at discharge to home.
--- NOTE | 2021-04-18 09:14 | XCELERA ---
[id number]
[2021-04-18] MEDS: ASCORBIC ACID 500 MG TAB PO SCH (09:22)
[2021-04-18 09:40] LABS: Basophils # (auto) 0.02 K/uL (0-0.2); Basophils % (auto) 0.1 %; Hematocrit (blood only) 44.3 % (42-52); Hemoglobin 14.7 g/dL (14.0-18.0); Immature Granulocytes # (auto) 0.08 K/uL (0.00-0.02); Immature Granulocytes % (auto) 0.5 %; Lymphocytes # (auto) 1.73 K/uL (1.2-3.4); Lymphocytes % (auto) 10.5 %; Mean Corpuscular Hemoglobin 28.9 pg (25-34); Mean Corpuscular Hgb Conc 33.2 g/dL (32-36); Mean Corpuscular Volume 87.2 fL (80-100); Mean Platelet Volume 11.1 fL (7.4-10.4); Monocytes # (auto) 2.05 K/uL (0.11-0.59); Monocytes % (auto) 12.5 %; Neutrophils # (auto) 12.52 K/uL (1.4-6.5); Neutrophils % (auto) 76.4 %; Platelet Count 239 K/uL (130-400); RDW Coefficient of Variation 15.1 % (11.5-14.5); RDW Standard Deviation 48.1 fL (36.4-46.3); Red Blood Count 5.08 M/uL (4.7-6.1)
[2021-04-18] MEDS ORDERED: AMIODARONE / D5W 150 MG/100 ML BAG IV STA (12:24)
[2021-04-18] MEDS ORDERED: AMIODARONE IV BOLUS & DRIP IV STA (12:24)
[2021-04-18] MEDS ORDERED: 0.2 MICRON FILTER SET 1 EA IV ONE (12:24)
[2021-04-18] MEDS ORDERED: STAT IV Infusion **Titration per Protocol STA (12:24)
[2021-04-18] MEDS ORDERED: APIXABAN 5 MG TABLET PO ONE (12:30)
[2021-04-18] MEDS ORDERED: AMIODARONE / D5W 360 MG/200 ML BAG IV ONE (12:34)
--- NOTE | 2021-04-18 16:30 | Cardiology Progress Note ---
Date of Service April 18, 2021 Assessment & Plan (1) Atrial fibrillation, new onset: (2) Cardiomyopathy: (3) Hypertension: (4) CAD (coronary artery disease): Plan: 1. Atrial fibrillation: From his history I cannot be sure how long he has been in atrial fibrillation. It has been at least 3 to 5 days before admission but I suspect longer. Since he does not have palpitations and we are relying on when he developed shortness of breath this could have occurred due to left ventricular dysfunction and may have occurred sometime after the arrhythmia began. The heart rate has been very fast and with digoxin and high-dose beta- blockers we cannot control the rate adequately, with his severe LV dysfunction and heart failure I am reluctant to add diltiazem to his regimen. I felt the best option would be to try to convert the rhythm, otherwise I am afraid his left ventricular function will not improve, however although cardioversion was successful in converting his rhythm to sinus he immediately returned to atrial fibrillation multiple times. Unfortunately we must therefore continue to try to control his rate. We will certainly need antiarrhythmic medications to maintain sinus rhythm, even temporarily, therefore I am going to start amiodarone for r ate control and for possible maintenance of sinus rhythm. I am going to start intravenous amiodarone however we may want to quickly transition to oral. I am also going to restart digoxin at a low dose. I will maintain his metoprolol. 2. Cardiomyopathy: He has a quite severe cardiomyopathy but he does not seem to be in severe congestive heart failure. The only symptom that I can elicit is e xertional shortness of breath which could be the arrhythmia or the left ventricular function, he does have a vague history of waking up at night which could be PND but does not fit the fact that he does not seem to be fluid overloaded. I am hopeful that the cardiomyopathy is primarily related to the rapid heart rate but I am concerned that this may be longstanding I am concerned that if I cannot get his heart rate under control he will not have improvement in his cardiomyopathy and medications and attempted cardioversion have not been effective as noted above. His left ventricular function did not improve at all even with some degree of rate control, this could indicate that the cardiomyopathy is more longstanding than we had hoped. It is not ischemic based on his catheterization today. I am going to continue rate controlling medications and hopefully we can add GARY or ARB therapy, possibly Entresto but have not done that as yet. 3. Hypertension: He has a history of hypertension, that corrected with minimal medications. We may be able to control his blood pressure and heart rate just with beta-blockade but the edition GARY or ARB beneficial, might be beneficial for his cardiomyopathy, but I would wait until we have his rate control before adding one. 4. Coronary disease: He does have coronary disease although it did not cause his cardiomyopathy. He should nevertheless be treated with risk factor modification which includes diet and exercise but more importantly from the current standpoint statin therapy and platelet inhibitors. Admission and Anticipated Discharge Date Admission Date: April 14, 2021 Subjective Cardioversion today was successful in converting the rhythm but it held very briefly and he quickly reverted back to atrial fibrillation. This occurred multiple times and will not be able to maintain sinus rhythm without ant iarrhythmic therapy, possibly not even that. His catheterization showed coronary artery disease but it was minimal, it certainly did not cause his cardiomyopathy. He is disappointed in the outcome of the cardioversion but he is in good spirits and has no physical complaints. His breathing is better, he has no palpitations. Physical Exam Physical Exam: Constitutional: Alert, cooperative and in no distress. HEENT: Unremarkable Neck: No jugular venous distention, carotid pulses are irregular but otherwise normal and equal bilaterally without bruits. Pulmonary: Clear to auscultation bilaterally. Cardiac: Irregular rapid rhythm with no murmur, gallop or rub. Abdomen: Soft, nontender with normal bowel sounds. Extremities: No edema. Distal pulses intact. Neurologic: No focal findings. Gait was not tested. Skin: No rash, ecchymoses or petechiae. Results & Data ([facility]) Vital Signs (Past 12 Hours) Vital Signs Temp Pulse Pulse Resp BP BP Pulse Ox 04/18/21 14:48 36.7 C 120 H 18 135/92 95 04/18/21 14:24 128 H 18 117/83 94 04/18/21 11:30 129 H 18 137/96 96 04/18/21 11:00 128 H 20 118/81 94 04/18/21 10:30 97 H 20 119/83 96 04/18/21 10:00 130 H 18 117/62 95 04/18/21 09:45 126 H 20 115/60 93 04/18/21 09:30 127 H 18 113/57 L 94 04/18/21 08:56 134 H 20 116/86 94 04/18/21 08:45 148 H 20 140/101 H 94 04/18/21 08:00 36.8 C 81 20 127/67 92 04/18/21 07:00 141 H 20 132/102 H 96 Laboratory Results CBC 04/18/21 Range/Units 09:26 WBC 16.40 H (4.8-10.8) K/uL RBC 5.08 (4.7-6.1) M/uL Hgb 14.7 (14.0-18.0) g/dL Hct 44.3 (42-52) % Plt Count 239 (130-400) K/uL Neut # (Auto) 12.52 H (1.4-6.5) K/uL Lymph # (Auto) 1.73 (1.2-3.4) K/uL [place] # (Auto) 2.05 H (0.11-0.59) K/uL Eos # (Auto) 0.00 (0-0.5) K/uL Baso # (Auto) 0.02 (0-0.2) K/uL Intake and Output 04/18/21 04/18/21 04/18/21 06:59 14:59 22:59 Intake Total 250 / 250 Balance 250 / 250 Intake: IV 100 / 100 Amiodarone / D5w 150 mg In 100 100 / 100 ml @ 600 mls/hr IV NOW STA Rx#: [id number] Oral 150 / 150 Other: Other Intake Source NPO # Unmeasured Voids 1 1 Weight 92.2 kg 92.2 kg Weight Measurement Method Built in [facility] Patient Weight 04/19/21 06:59 Weight 92.2 kg Diagnostic Findings Telemetry: His atrial fibrillation remains rapid, amiodarone is pending. PG Care Time/CCT Total # of Minutes Spent Total Time Spent with Patient: Total time spent is greater than 50% in coordination of care (as documented) at patient's floor/unit and/or counseling patient: Coding Level of Care Code 85931 Subseq Hosp Care Lvl 3 Diagnoses Atrial fibrillation, new onset I48.91 Cardiomyopathy I42.9 Cardiomyopathy type: unspecified Hypertension I10 CAD (coronary artery disease) I25.10 (1) Cardiomyopathy Cardiomyopathy type: unspecified Qualified Code(s): I42.9 - Cardiomyopathy, unspecified
[2021-04-18] MEDS: DIGOXIN 0.125 MG/2.5 ML UDP PO SCH (17:06)
--- NOTE | 2021-04-18 19:49 | Electrocardiogram Report ---
Test Reason : Blood Pressure : / mmHG Vent. Rate : 106 BPM Atrial Rate : 088 BPM P-R Int : 000 ms QRS Dur : 084 ms QT Int : 298 ms P-R-T Axes : 000 024 101 degrees QTc Int : 395 ms Atrial fibrillation with rapid ventricular response Low voltage QRS Nonspecific T wave abnormality Abnormal ECG When compared with ECG of 14-APR-2021 23:43, (unconfirmed) Nonspecific T wave abnormality, worse in Inferior leads Nonspecific T wave abnormality, worse in Lateral leads Confirmed by Richard Bowers ([id number]) on 04/18/2021 7:49:38 PM Referred By: REFERRED SELF Confirmed By:Richard Bowers
[2021-04-18] MEDS: AMIODARONE / D5W 360 MG/200 ML BAG IV SCH (20:17)
[2021-04-18] MEDS: METOPROLOL SUCC 50MG EXT REL TAB PO SCH (20:22)
[2021-04-18] MEDS: APIXABAN 5 MG TABLET PO SCH (21:26)
--- NOTE | 2021-04-19 07:01 | Hospitalist Progress Note ---
Date of Service April 19, 2021 Assessment & Plan (1) Atrial fibrillation with RVR: Plan: Atrial fibrillation with RVR IV diltiazem drip started, then transitioned to Lopressor IV Lopressor stopped due to hypotension, IV digoxin given (250 mcg) Echocardiogram: CHF systolic HF (EF: 20 to 25%) Consulted cardiology * continue rate control meds - Toprol 100 mg twice daily; digoxin 0.125 mg every afternoon (approximately 1600); * anticoagulation with apixaban 5 mg bid. * repeat echo with worsening EF * Cardioversion after OMAR was successful in converting the rhythm but it held very briefly and he quickly reverted back to atrial fibrillation * [facility] summary: Mild to moderate nonobstructive coronary artery disease, 50% mid LAD, 40 to 50% mid circumflex, Borderline intracardiac filling pressure * Check TSH * Continue IV amiodarone drip Cardiomyopathy Initial echo 04/14/2021: Severely reduced LV systolic function, EF: 20-25%, no evidence of ischemia, CHF on imaging. Repeat echo 04/17/2021: EF 15 to 20% with severely reduced LV systolic function, severe global LV hypokinesis. More urgent management indicated. * Metoprolol, digoxin doses as above * Transesophageal echo, intracardiac catheterization scheduled for 04/18/2021: S ee results above * As per Cardiology, given one dose of Lasix 20mg IV given still dyspneic on exertion at times. * Continue guideline directed medical therapy for nonischemic cardiomyopathy * Continued ASCVD risk factor modification * Added low dose Entresto 26mg HTN * Toprol, digoxin as above. Concern of sleep apnea * Nocturnal pulse oximetry ordered; 54 desaturations overnight in 7 hours of sleep. 7.7 desaturations per hour. C/f GABRIEL, CSA. * CPAP HS. * Recommend further outpatient evaluation of sleep apnea. DVT Prophylaxis: Apixaban Code status: Full code (2) Cardiomyopathy: (3) Hypertension: (4) Hepatic steatosis: Admission and Anticipated Discharge Date Admission Date: April 14, 2021 Supervising Physician Co-Signing Physician Notes Resident Physician Supervision Note: I independently interviewed and examined the patient and verified the bolaños history and physical, reviewed labs and image studies and agree with resident Dr. De Leon findings and care plan. Subjective Patient seen at the bedside this morning. Patient said last night was his best night yet and that he may feel mildly winded walking around still. Patient denies any palpitations, nausea, vomiting, shortness of breath on rest. Not symptomatic throughout the night but had episode of HR in 150's around 22:30 last night and episode of HR in 160's around 06:30 this morning, otherwise HR in 110's-130's. Physical Exam Constitutional: WD/WN, vitals as above Eyes: PERRL, conjunctivae normal, anicteric sclerae Respiratory: normal respiratory effort, lungs clear to auscultation Cardiovascular: Rate/Rhythm: + irregularly irregular Gastrointestinal (Abdomen): normal bowel sounds, soft, nontender, no hepatosplenomegaly Results & Data Results & Data ([facility]) Vital Signs (Past 12 Hours) Vital Signs Temp Pulse Resp BP Pulse Ox 04/19/21 03:31 36.7 C 78 18 129/93 96 04/18/21 23:26 36.9 C 112 H 24 129/90 93 04/18/21 19:52 36.8 C 96 H 24 123/83 98 (1) Cardiomyopathy Cardiomyopathy type: unspecified Qualified Code(s): I42.9 - Cardiomyopathy, unspecified
[2021-04-19] MEDS: AMIODARONE / D5W 360 MG/200 ML BAG IV SCH ×2 (07:42→18:17)
[2021-04-19] MEDS: APIXABAN 5 MG TABLET PO SCH ×2 (08:49→21:52)
[2021-04-19] MEDS: ASCORBIC ACID 500 MG TAB PO SCH (08:49)
[2021-04-19] MEDS: METOPROLOL SUCC 50MG EXT REL TAB PO SCH ×2 (08:50→21:51)
--- NOTE | 2021-04-19 12:25 | Cardiology Progress Note ---
Date of Service April 19, 2021 Assessment & Plan (1) Atrial fibrillation with RVR: (2) Cardiomyopathy: (3) CAD (coronary artery disease): (4) Hypertension: Plan: ASSESSMENT/PLAN: 1. AFib with RVR: Heart rate has improved on current therapy but is still not r ate controlled. Has undergone cardioversion x4 on 04/18/2021 and although converted to sinus rhythm, only lasted briefly before reverting to AFib. Amiodarone initiated less than 24 hours ago. Continue amiodarone drip for now. Consider oral amiodarone tomorrow to complete amiodarone load and likely repeat cardioversion in the future which will hopefully be more successful with antiarrhythmic therapy in place. Has been escalated to high-dose metoprolol succinate and therefore will not further adjust the medication today. Due for another dose of digoxin this afternoon. Continue anticoagulation for stroke risk reduction. Avoiding intravenous diltiazem given class III/IV heart failure symptoms. Check TSH. 2. Cardiomyopathy: On physical exam does not appear to be significantly hypervo lemic but LVEDP was recorded as 18 mmHg, and he does have shortness of breath at rest at times. Will give Lasix 20 mg IV x1. Continue metoprolol succinate. Start low-dose Entresto. 3. CAD: Nonobstructive. Would not account for his reduced LV systolic function. Continue beta-zeenat. Would recommend high-intensity statin therapy however transaminase levels currently elevated. 4. Hypertension: Blood pressure mostly normotensive but at times mildly hypertensive. Entresto recommended as above. Has been initiated on metoprolol during this hospital stay. 5. Disposition: Dr. Leal will be available tomorrow to assist in his care, while Dr. Bowers returns on Wednesday. Patient care communicated with Dr. Cowan of the primary hospitalist service. Admission and Anticipated Discharge Date Admission Date: April 14, 2021 Subjective Patient seen this morning. Has dyspnea with exertion and sometimes at rest as well. He describes dyspnea as mild. Denies orthopnea. Has intermittent palpitations but denies chest pain. He denies syncope, near-syncope, edema, or bleeding. Yesterday he underwent cardiac catheterization with nonobstructive CAD. He underwent transesophageal echo and cardioversion, including 4 separate attempts. He apparently regained sinus rhythm only briefly, and then reverted to AFib within seconds. He was then placed on amiodarone drip in the afternoon. Physical Exam Physical Exam: Gen.: No acute distress. Alert and oriented. HEENT: Anicteric sclera. Neck: No JVD. Cardiac: Irregularly irregular and tachycardic. Normal S1-S2. No murmurs, rubs, or gallops. Pulmonary: Clear to auscultation bilaterally without wheezes, rales, or rhonchi. Abdomen: Soft, nontender, nondistended, with normoactive bowel sounds. No bruits noted. Extremities: 2+ radial pulses bilaterally. Right radial cath site without hematoma or drainage. 2+ posterior tibialis pulses bilaterally. No edema or cyanosis. Psychiatric: Affect appears appropriate. Results & Data ([facility]) Vital Signs (Past 12 Hours) Vital Signs Temp Pulse Pulse Resp BP Pulse Ox 04/19/21 08:00 36.8 C 88 18 141/71 H 96 04/19/21 03:31 36.7 C 78 18 129/93 96 Intake & Output 04/17/21 04/18/21 04/19/21 04/20/21 06:59 06:59 06:59 06:59 Intake Total 1015 / 1015 590 / 590 445.915 / 445.915 190.658 / 190.658 Output Total 615 / 615 Balance 400 / 400 590 / 590 445.915 / 445.915 190.658 / 190.658 Weight 207 lb 0.225 oz 203 lb 4.259 oz 204 lb 5.896 oz Diagnostic Findings Chart reviewed. Transesophageal echo and cardioversion report reviewed. Telemetry personally reviewed: Atrial fibrillation with rapid ventricular response however the overall rate is trending downward. Cardiac catheterization 04/18/2021: 1. Mild to moderate nonobstructive coronary artery disease -50% mid LAD 40 to 50% mid circumflex 2. Borderline intracardiac filling pressure Medications Administered Current Inpatient Medications Acetaminophen (Acetaminophen 325 Mg Tab) 650 mg PO Q4H PRN PRN Reason: Pain or Fever Stop: 05/14/21 15:42 Al Hydrox/Mg Hydrox/Simethicone (Aluminum/Magnesium Susp 30 Ml Udc) 15 ml PO Q4H PRN PRN Reason: Dyspepsia Stop: 05/14/21 15:42 Apixaban (Apixaban 5 Mg Tablet) 5 mg PO BID [facility] Stop: 05/14/21 20:59 Last Admin: 04/19/21 08:49 Dose: 5 mg Documented by: Ascorbic Acid (Ascorbic Acid 500 Mg Tab) 1,000 mg PO DAILY [facility] Stop: 05/15/21 08:59 Last Admin: 04/19/21 08:49 Dose: 1,000 mg Documented by: Digoxin (Digoxin 0.125 Mg/2.5 Ml Udp) 0.125 mg PO DAILY@1600 [facility] Stop: 05/18/21 16:34 Last Admin: 04/18/21 17:06 Dose: 0.125 mg Documented by: Amiodarone HCl/Dextrose (Nexterone / D5w) 360 mg in 200 mls @ 16.667 mls/hr IV .Q12H [facility] Stop: 05/18/21 18:29 Last Admin: 04/19/21 07:42 Dose: 0.5 mg/min, 16.7 mls/hr Documented by: Magnesium Hydroxide (Magnesium Hydroxide Susp 30 Ml Udc) 30 ml PO Q12H PRN PRN Reason: Constipation Stop: 05/14/21 15:42 Melatonin (Melatonin 3 Mg Tab) 3 mg PO HS PRN PRN Reason: Sleep Stop: 05/15/21 09:16 Last Admin: 04/16/21 00:06 Dose: 3 mg Documented by: Metoprolol Succinate (Metoprolol Succ 50mg Ext Rel Tab) 100 mg PO BID [facility] Stop: 05/16/21 20:59 Last Admin: 04/19/21 08:50 Dose: 100 mg Documented by: Metoprolol Tartrate (Metoprolol Tartrate 50 Mg Tab) 50 mg PO PRN PRN; Protocol PRN Reason: Hypertension Stop: 05/16/21 19:27 Last Admin: 04/18/21 12:07 Dose: 50 mg Documented by: Morphine Sulfate (Morphine Sulfate 2 Mg/Ml Carp) 2 mg IV Q30M PRN PRN Reason: Chest Pain Stop: 04/28/21 15:42 Nitroglycerin (Nitroglycerin Sl 0.4 Mg/Tab Tab) 0.4 mg SL UD PRN PRN Reason: Chest Pain Stop: 05/14/21 15:42 Ondansetron HCl (Ondansetron Inj 2 Mg/Ml 2 Ml Vial) 4 mg IV Q6H PRN PRN Reason: Nausea Stop: 05/14/21 15:42 Polyethylene Glycol (Polyethylene (Miralax) 17 Gm Pack) 17 gm PO DAILY PRN PRN Reason: Constipation Stop: 05/14/21 15:42 PG Care Time/CCT Total # of Minutes Spent Total Time Spent with Patient: Total time spent is greater than 50% in coordination of care (as documented) at patient's floor/unit and/or counseling patient: Coding Level of Care Code 89815 Subseq Hosp Care Lvl 3 Diagnoses Atrial fibrillation with RVR I48.91 Cardiomyopathy I42.9 Cardiomyopathy type: unspecified CAD (coronary artery disease) I25.10 Hypertension I10 (1) Cardiomyopathy Cardiomyopathy type: unspecified Qualified Code(s): I42.9 - Cardiomyopathy, unspecified
[2021-04-19] MEDS ORDERED: FUROSEMIDE INJ 20 MG/2 ML VIAL IV ONE (12:39)
[2021-04-19 13:45] LABS: BUN Creatinine Ratio 15.9 (10-20); Calcium 8.9 mg/dl (8.5-10.1); Creatinine Clr Calc Pharmacy 80.8 ml/min; Est GFR (African American) 81.7 ml/min; Est GFR (Non-African American) 70.5 ml/min; Potassium 3.8 mmol/L (3.5-5.1)
[2021-04-19 13:56] LABS: Thyroid Stimulating Hormone 5.21 uIu/ml (0.300-4.500)
[2021-04-19] MEDS: DIGOXIN 0.125 MG/2.5 ML UDP PO SCH (16:41)
[2021-04-19] MEDS: VALSARTAN/SACUBITRIL 26/24MG TAB PO SCH (21:51)
[2021-04-20] MEDS: AMIODARONE / D5W 360 MG/200 ML BAG IV SCH ×2 (06:05→17:08)
[2021-04-20 06:15] LABS: BUN Creatinine Ratio 15.4 (10-20); Calcium 8.9 mg/dl (8.5-10.1); Creatinine Clr Calc Pharmacy 85.3 ml/min; Est GFR (African American) 88.2 ml/min; Est GFR (Non-African American) 76.1 ml/min; Potassium 3.6 mmol/L (3.5-5.1)
[2021-04-20] MEDS: METOPROLOL SUCC 50MG EXT REL TAB PO SCH ×2 (08:17→20:38)
[2021-04-20] MEDS: APIXABAN 5 MG TABLET PO SCH ×2 (08:17→20:38)
[2021-04-20] MEDS: VALSARTAN/SACUBITRIL 26/24MG TAB PO SCH ×2 (08:17→20:37)
[2021-04-20] MEDS: ASCORBIC ACID 500 MG TAB PO SCH (08:17)
--- NOTE | 2021-04-20 08:17 | Hospitalist Progress Note ---
Date of Service April 20, 2021 Assessment & Plan (1) Atrial fibrillation with RVR: Plan: Atrial fibrillation with RVR IV diltiazem drip started, then transitioned to Lopressor IV Lopressor stopped due to hypotension, IV digoxin given (250 mcg) Echocardiogram: CHF systolic HF (EF: 20 to 25%) Consulted cardiology * continue rate control meds - Toprol 100 mg twice daily; digoxin 0.125 mg every afternoon (approximately 1600); * anticoagulation with apixaban 5 mg bid. Repeat echo with worsening EF - 15-20% * Cardioversion after OMAR was successful in converting the rhythm but it held very briefly and he quickly reverted back to atrial fibrillation * [facility] summary: Mild to moderate nonobstructive coronary artery disease, 50% mid LAD, 40 to 50% mid circumflex, Borderline intracardiac filling pressure * TSH 5.210, started Synthroid 25mcg * Continue IV amiodarone drip with plans to transition to 400mg PO bid for 24 hrs. Cardiomyopathy with acute systolic heart failure Initial echo 04/14/2021: Severely reduced LV systolic function, EF: 20-25%, no evidence of ischemia, CHF on imaging. Repeat echo 04/17/2021: EF 15 to 20% with severely reduced LV systolic function, severe global LV hypokinesis. More urgent management indicated. * Metoprolol, digoxin doses as above * Added low dose Entresto 26mg * holding statin due to elevated transaminases - will need high dose statin. * Give another dose of Lasix 20mg IV given still dyspneic on exertion at times. monitor Is and Os HTN * Toprol, digoxin as above. Concern of sleep apnea * Nocturnal pulse oximetry ordered; 54 desaturations overnight in 7 hours of sleep. 7.7 desaturations per hour. C/f GABRIEL, CSA. * CPAP HS, patient refused last night, will try again tonight. * Recommend further outpatient evaluation of sleep apnea. Subclinical hypothyroidism: * TSH 5.210, likely not the main contributing factor to new onset A. Fib. * Started on 25mcg levothyroxine. Transaminitis * likely sec to fluid overload. * recheck in am Leukocytosis * ? sec to stress from acute decompensation of CMP and fluid overload. no obvious sign of infection. * recheck cbc in am. DVT Prophylaxis: Apixaban Code status: Full code (2) Cardiomyopathy: (3) Hypertension: (4) Hepatic steatosis: Admission and Anticipated Discharge Date Admission Date: April 14, 2021 Supervising Physician Co-Signing Physician Notes Resident Physician Supervision Note: I independently interviewed and examined the patient and verified the bolaños history and physical, reviewed labs and image studies and agree with resident Dr. De Leon findings and care plan. Subjective Patient seen at the bedside this morning. No complaints from overnight aside from being woken up often and unable to get much sleep. Denies fevers, chills, palpitations, nausea, vomiting. Had one short interval around 4AM of HR in 170's, but most of night in 100's- 110's per Tele. Physical Exam Constitutional: WD/WN, vitals as above Eyes: PERRL, conjunctivae normal, anicteric sclerae Respiratory: normal respiratory effort, lungs clear to auscultation Cardiovascular: Rate/Rhythm: + irregularly irregular Gastrointestinal (Abdomen): normal bowel sounds, soft, nontender, no hepatosplenomegaly Results & Data Results & Data ([facility]) Vital Signs (Past 12 Hours) Vital Signs Temp Pulse Pulse Resp BP BP Pulse Ox 04/20/21 07:33 36.6 C 59 L 19 123/83 95 04/20/21 02:55 36.4 C L 77 24 111/75 96 04/20/21 00:00 36.5 C 65 24 130/82 97 Resident Activity Tracking Resident Involvement: Resident Care Provided Care Provided: Adult Hospital Medicine (1) Cardiomyopathy Cardiomyopathy type: unspecified Qualified Code(s): I42.9 - Cardiomyopathy, unspecified
[2021-04-20] MEDS: LEVOTHYROXINE SODIUM 25 MCG TABLET PO SCH (10:01)
--- NOTE | 2021-04-20 11:03 | Cardiology Progress Note ---
Date of Service April 20, 2021 Assessment & Plan Admission and Anticipated Discharge Date Admission Date: April 14, 2021 Subjective His heart rates are better. He is short of breath talking in sentences though. He notes he felt better yesterday after diuretics. He denies any lightheadedness or dizziness. He still continues to have some shortness of breath. He is unaware of feeling his heart racing but occasionally does have some palpitations. He has no lower extremity edema. He notes he had early satiety at home. His abdomen is soft this morning. He had a number of questions which were answered for him. it sounds like there is a concern that he has obstructive sleep apnea. Results & Data ([facility]) Vital Signs (Past 12 Hours) Vital Signs Temp Pulse Pulse Resp BP BP Pulse Ox 04/20/21 07:33 36.6 C 118 H 118 H 19 123/83 95 04/20/21 02:55 36.4 C L 77 24 111/75 96 04/20/21 00:00 36.5 C 65 24 130/82 97 Assessment & Plan (1) Atrial fibrillation with RVR: (2) Cardiomyopathy: (3) CAD (coronary artery disease): (4) Hypertension: Plan: ASSESSMENT/PLAN: 1. AFib with RVR: Heart rate has improved on current therapy but is still not rate controlled. Has undergone cardioversion x4 on 04/18/2021 and although conv erted to sinus rhythm, only lasted briefly before reverting to AFib. Amiodarone the for another 24 hours and will overlap with p.o. amiodarone 400 mg twice daily x24 hours. Continue anticoagulation for stroke risk reduction. Avoiding intravenous diltiazem given class III/IV heart failure symptoms. Not his heart failure symptoms repeat elective cardioversion considered next week for appropriate amiodarone loading. 2. Cardiomyopathy: On physical exam does not appear to be significantly hypervolemic but LVEDP was recorded as 18 mmHg, and he does have shortness of breath talking in sentences. Will give Lasix 20 mg IV x1. Continue metoprolol succinate. Start low-dose Entresto. 3. CAD: Nonobstructive. Would not account for his reduced LV systolic function. Continue beta-zeenat. Would recommend high-intensity statin therapy however transaminase levels currently elevated. 4. Hypertension: Blood pressure mostly normotensive but at times mildly hypertensive. Entresto recommended as above. Has been initiated on metoprolol during this hospital stay. 5. Disposition: Dr. Bowers returns on Wednesday. Admission and Anticipated Discharge Date Admission Date: April 14, 2021 Physical Exam Physical Exam: Gen.: No acute distress. Alert and oriented. HEENT: Anicteric sclera. Neck: No JVD. Cardiac: Irregularly irregular and tachycardic. Normal S1-S2. No murmurs, rubs, or gallops. Pulmonary: Clear to auscultation bilaterally without wheezes, rales, or rhonchi. Abdomen: Soft, nontender, nondistended, with normoactive bowel sounds. Extremities: . No edema or cyanosis. Psychiatric: Affect appears appropriate.
[2021-04-20] MEDS ORDERED: FUROSEMIDE INJ 20 MG/2 ML VIAL IV ONE (11:04)
[2021-04-20] MEDS: AMIODARONE 200 MG TAB PO SCH ×2 (12:09→17:05)
[2021-04-20] MEDS: DIGOXIN 0.125 MG TAB PO SCH (17:05)
[2021-04-21] MEDS: AMIODARONE / D5W 360 MG/200 ML BAG IV SCH (05:31)
[2021-04-21] MEDS: LEVOTHYROXINE SODIUM 25 MCG TABLET PO SCH (05:32)
--- NOTE | 2021-04-21 08:06 | Hospitalist Progress Note ---
Date of Service April 21, 2021 Assessment & Plan (1) Atrial fibrillation with RVR: Plan: Atrial fibrillation with RVR IV diltiazem drip started, then transitioned to Lopressor IV Lopressor stopped due to hypotension, IV digoxin given (250 mcg) Echocardiogram: CHF systolic HF (EF: 20 to 25%) Consulted cardiology * continue rate control meds - Toprol 100 mg twice daily; digoxin 0.125 mg every afternoon (approximately 1600) * anticoagulation with apixaban 5 mg bid. * repeat echo with worsening EF * Cardioversion after OMAR was successful in converting the rhythm but it held very briefly and he quickly reverted back to atrial fibrillation * [facility] summary: Mild to moderate nonobstructive coronary artery disease, 50% mid LAD, 40 to 50% mid circumflex, Borderline intracardiac filling pressure * TSH 5.210, started Synthroid 25mcg * d/c IV amiodarone, continue PO amiodarone 600mg qam * Plan to cardiovert in 3-4 weeks after amiodarone has time to work * consider high dose intensity statin once transaminitis lowers Cardiomyopathy Initial echo 04/14/2021: Severely reduced LV systolic function, EF: 20-25%, no evidence of ischemia, CHF on imaging. Repeat echo 04/17/2021: EF 15 to 20% with severely reduced LV systolic function, severe global LV hypokinesis. More urgent management indicated. * Metoprolol, digoxin doses as above * Transesophageal echo, intracardiac catheterization scheduled for 04/18/2021: See results above * As per Cardiology, given another dose of Lasix 20mg IV given still dyspneic on exertion at times. * Continue guideline directed medical therapy for nonischemic cardiomyopathy * Continued ASCVD risk factor modification * Added low dose Entresto 26mg HTN * Toprol, digoxin as above. Concern of sleep apnea * Nocturnal pulse oximetry ordered; 54 desaturations overnight in 7 hours of sleep. 7.7 desaturations per hour. C/f GABRIEL, CSA. * CPAP HS, patient refused last night, will try again tonight. * Recommend further outpatient evaluation of sleep apnea. Subclinical hypothyroidism: * TSH 5.210, likely not the main contributing factor to new onset A. Fib. * Started on 25mcg levothyroxine. FENa: low fat diet DVT Prophylaxis: Apixaban Code status: Full code (2) Cardiomyopathy: (3) Hypertension: (4) Hepatic steatosis: Admission and Anticipated Discharge Date Admission Date: April 14, 2021 Supervising Physician Co-Signing Physician Notes Patient seen and examined, chart reviewed, case discussed with Dr. García and I agree with the assessment and plan as above except as otherwise noted 60-year-old male with A. fib/RVR and cardiomyopathy with conversion back to A. fib after electrical cardioversion with inadequate rate control to the 140s today. IV amiodarone being transitioned to p.o., discontinuing IV today. Digoxin slightly subtherapeutic 0.7. Followed by cardiology, defer increase in digoxin at this time. Patient will undergo cardioversion in 3 to 4 weeks. Etiology of cardiomyopathy unclear, does not appear to be ischemic? Rate related. Continuing metoprolol, Entresto. Appreciate cardiology recommendations. Rate decreasing through afternoon, if remains rate controlled progressing towards discharge on oral amiodarone/dig/metoprolol. Continue Entresto, continue anticoagulation with apixaban. At bedside patient feels well, has refused CPAP in the past discussed his multiple nocturnal desaturations and the effect of this on pulmonary hypertension, A. fib, and cardiomyopathy. Patient agreeable to CPAP trial and further outpatient evaluation for sleep apnea/sleep study. At bedside radial pulse intact, irregularly irregular, breathing unlabored with symmetrical chest rise, no acute distress. Subjective 60yo Male here for afib with RVR. PMH HTN. Patient seen at bedside calm pleasant cooperative, he denies chest pain palpitations SOB. Patient states he was previously very healthy and active, states he usually has difficulty sleeping. He states he has not used the CPAP in the past 2 nights due to abdominal discomfort, but understands that sleep apnea may be contributing to his symptoms. Patient understands that his heart is currently not beating as efficiently. Review of Systems Review of Systems: positive constipation Negative fever chills Negative headache dizziness Negative chest pain palpitations SOB Negative nausea vomitting diarrhea Physical Exam Constitutional: WD/WN, vitals as above Respiratory: normal respiratory effort, lungs clear to auscultation Cardiovascular: Rate/Rhythm: + tachycardic and + irregularly irregular Heart Sounds: normal S1 and normal S2 Gastrointestinal (Abdomen): normal bowel sounds, soft, nontender, no hepatosplenomegaly Skin: no rashes, warm and dry Results & Data Results & Data ([facility]) Vital Signs (Past 12 Hours) Vital Signs Temp Pulse Pulse Pulse Resp BP BP 04/21/21 07:59 36.4 C L 126 H 15 124/92 04/21/21 07:53 114 H 04/21/21 04:00 36.7 C 111 H 18 121/73 04/21/21 00:23 36.8 C 65 20 113/75 Pulse Ox 04/21/21 07:59 95 04/21/21 07:53 04/21/21 04:00 94 04/21/21 00:23 93 Laboratory Results 04/21/21 04/21/21 04/21/21 Range/Units 07:31 07:31 07:31 WBC 11.46 H (4.8-10.8) K/uL RBC 5.29 (4.7-6.1) M/uL Hgb 15.2 (14.0-18.0) g/dL Hct 46.4 (42-52) % MCV 87.7 (80-100) fL MCH 28.7 (25-34) pg MCHC 32.8 (32-36) g/dL RDW Std Deviation 48.3 H (36.4-46.3) fL RDW Coeff of [place] 15.1 H (11.5-14.5) % Plt Count 333 (130-400) K/uL MPV 11.4 H (7.4-10.4) fL Immature Gran % (Auto) 0.4 % Neut % (Auto) 64.7 % Lymph % (Auto) 21.4 % [place] % (Auto) 11.3 % Eos % (Auto) 2.0 % Baso % (Auto) 0.2 % Neut # (Auto) 7.41 H (1.4-6.5) K/uL Lymph # (Auto) 2.45 (1.2-3.4) K/uL [place] # (Auto) 1.30 H (0.11-0.59) K/uL Eos # (Auto) 0.23 (0-0.5) K/uL Baso # (Auto) 0.02 (0-0.2) K/uL Immature Gran # (Auto) 0.05 H (0.00-0.02) K/uL Sodium 141 (136-145) mmol/L Potassium 3.6 (3.5-5.1) mmol/L Chloride 109 H (98-107) mmol/L Carbon Dioxide 22 (21-32) mmol/L Anion Gap 10.0 (3-11) BUN 15 (7-18) mg/dl Creatinine 1.01 (0.6-1.4) mg/dl Est Cr Clr Drug Dosing 90.2 ml/min Est GFR ( Amer) 94.6 ml/min Est GFR (Non-Af Amer) 81.6 ml/min BUN/Creatinine Ratio 15.1 (10-20) Glucose 103 H (70-99) mg/dl Calcium 9.1 (8.5-10.1) mg/dl Total Bilirubin 0.7 (0.2-1) mg/dl AST 24 (15-37) U/L ALT 83 H (12-78) Alkaline Phosphatase 73 (45-117) U/L Total Protein 6.5 (6.4-8.2) gm/dl Albumin 2.9 L (3.4-5.0) gm/dl Globulin 3.6 (2.5-4.0) gm/dl Albumin/Globulin Ratio 0.8 L (0.9-2) Digoxin 0.7 L (0.8-2.0) ng/ml Diagnostic Findings Chest X-Ray 04/14/21 11:52 XR chest 1V portable HISTORY: Shortness of breath. Weakness. COMPARISON: None. FINDINGS: No pneumothorax. No pleural effusions. The cardiac silhouette is mildly enlarged. The left lung is clear. Small patchy airspace opacity within the right medial lung base. No evidence for pulmonary edema. IMPRESSION: 1. Small patchy airspace opacity within the right medial lung base. This could represent atelectasis or pneumonia. 2. Mild cardiomegaly. ACT 112: Negative or not required by law. Electronically signed by: Sunil Brunner M.D. 04/14/2021 12:19 PM Medications Administered Current Inpatient Medications Acetaminophen (Acetaminophen 325 Mg Tab) 650 mg PO Q4H PRN PRN Reason: Pain or Fever Stop: 05/14/21 15:42 Al Hydrox/Mg Hydrox/Simethicone (Aluminum/Magnesium Susp 30 Ml Udc) 15 ml PO Q4H PRN PRN Reason: Dyspepsia Stop: 05/14/21 15:42 Amiodarone HCl (Amiodarone 200 Mg Tab) 600 mg PO QAM [facility] Stop: 05/22/21 08:59 Apixaban (Apixaban 5 Mg Tablet) 5 mg PO BID [facility] Stop: 05/14/21 20:59 Last Admin: 04/21/21 08:16 Dose: 5 mg Documented by: Ascorbic Acid (Ascorbic Acid 500 Mg Tab) 1,000 mg PO DAILY [facility] Stop: 05/15/21 08:59 Last Admin: 04/21/21 08:15 Dose: 1,000 mg Documented by: Digoxin (Digoxin 0.125 Mg Tab) 0.125 mg PO DAILY@1600 [facility] Stop: 05/20/21 15:59 Last Admin: 04/21/21 17:19 Dose: 0.125 mg Documented by: Levothyroxine Sodium (Levothyroxine Sodium 25 Mcg Tablet) 25 mcg PO DAILYBB [facility] Stop: 05/20/21 08:54 Last Admin: 04/21/21 05:32 Dose: 25 mcg Documented by: Magnesium Hydroxide (Magnesium Hydroxide Susp 30 Ml Udc) 30 ml PO Q12H PRN PRN Reason: Constipation Stop: 05/14/21 15:42 Melatonin (Melatonin 3 Mg Tab) 3 mg PO HS PRN PRN Reason: Sleep Stop: 05/15/21 09:16 Last Admin: 04/16/21 00:06 Dose: 3 mg Documented by: Metoprolol Succinate (Metoprolol Succ 50mg Ext Rel Tab) 100 mg PO BID [facility] Stop: 05/16/21 20:59 Last Admin: 04/21/21 08:15 Dose: 100 mg Documented by: Metoprolol Tartrate (Metoprolol Tartrate 50 Mg Tab) 50 mg PO PRN PRN; Protocol PRN Reason: Hypertension Stop: 05/16/21 19:27 Last Admin: 04/18/21 12:07 Dose: 50 mg Documented by: Morphine Sulfate (Morphine Sulfate 2 Mg/Ml Carp) 2 mg IV Q30M PRN PRN Reason: Chest Pain Stop: 04/28/21 15:42 Nitroglycerin (Nitroglycerin Sl 0.4 Mg/Tab Tab) 0.4 mg SL UD PRN PRN Reason: Chest Pain Stop: 05/14/21 15:42 Ondansetron HCl (Ondansetron Inj 2 Mg/Ml 2 Ml Vial) 4 mg IV Q6H PRN PRN Reason: Nausea Stop: 05/14/21 15:42 Polyethylene Glycol (Polyethylene (Miralax) 17 Gm Pack) 17 gm PO DAILY PRN PRN Reason: Constipation Stop: 05/14/21 15:42 Sacubitril/Valsartan (Valsartan/Sacubitril 26/24mg Tab) 1 tab PO BID [facility] Stop: 05/19/21 20:59 Last Admin: 04/21/21 08:16 Dose: 1 tab Documented by: Resident Activity Tracking Resident Involvement: Resident Care Provided Care Provided: Adult Hospital Medicine (1) Cardiomyopathy Cardiomyopathy type: unspecified Qualified Code(s): I42.9 - Cardiomyopathy, unspecified
[2021-04-21] MEDS: METOPROLOL SUCC 50MG EXT REL TAB PO SCH ×2 (08:15→19:55)
[2021-04-21] MEDS: AMIODARONE 200 MG TAB PO SCH (08:15)
[2021-04-21] MEDS: ASCORBIC ACID 500 MG TAB PO SCH (08:15)
[2021-04-21] MEDS: VALSARTAN/SACUBITRIL 26/24MG TAB PO SCH ×2 (08:16→19:55)
[2021-04-21] MEDS: APIXABAN 5 MG TABLET PO SCH ×2 (08:16→19:54)
[2021-04-21 08:37] LABS: Basophils # (auto) 0.02 K/uL (0-0.2); Basophils % (auto) 0.2 %; Eosinophils # (auto) 0.23 K/uL (0-0.5); Hematocrit (blood only) 46.4 % (42-52); Hemoglobin 15.2 g/dL (14.0-18.0); Immature Granulocytes # (auto) 0.05 K/uL (0.00-0.02); Immature Granulocytes % (auto) 0.4 %; Lymphocytes # (auto) 2.45 K/uL (1.2-3.4); Lymphocytes % (auto) 21.4 %; Mean Corpuscular Hemoglobin 28.7 pg (25-34); Mean Corpuscular Hgb Conc 32.8 g/dL (32-36); Mean Corpuscular Volume 87.7 fL (80-100); Mean Platelet Volume 11.4 fL (7.4-10.4); Monocytes % (auto) 11.3 %; Neutrophils # (auto) 7.41 K/uL (1.4-6.5); Neutrophils % (auto) 64.7 %; Platelet Count 333 K/uL (130-400); RDW Coefficient of Variation 15.1 % (11.5-14.5); RDW Standard Deviation 48.3 fL (36.4-46.3); Red Blood Count 5.29 M/uL (4.7-6.1); White Blood Count 11.46 K/uL (4.8-10.8)
[2021-04-21 09:14] LABS: Albumin Level 2.9 gm/dl (3.4-5.0); BUN Creatinine Ratio 15.1 (10-20); Calcium 9.1 mg/dl (8.5-10.1); Creatinine Clr Calc Pharmacy 90.2 ml/min; Est GFR (African American) 94.6 ml/min; Est GFR (Non-African American) 81.6 ml/min; Potassium 3.6 mmol/L (3.5-5.1)
[2021-04-21 09:17] LABS: Albumin Globulin Ratio 0.8 (0.9-2); Bilirubin,Total 0.7 mg/dl (0.2-1); Globulin 3.6 gm/dl (2.5-4.0); Total Protein 6.5 gm/dl (6.4-8.2)
--- NOTE | 2021-04-21 13:23 | Cardiology Progress Note ---
Date of Service April 21, 2021 Assessment & Plan (1) Atrial fibrillation with RVR: (2) Cardiomyopathy: (3) CAD (coronary artery disease): (4) Hypertension: Plan: ASSESSMENT/PLAN: 1. AFib with RVR: His heart rate remains elevated although perhaps somewhat bett er on amiodarone. He has been overlapping between oral and intravenous amiodarone for 24 hours. I will discontinue the IV amiodarone and continue oral. Although we could go up a little bit on the digoxin I am reluctant as reloaded with amiodarone and I do not know that it would make much difference. I would continue the current regimen I think it is acceptable. I will plan on cardioverting him again in around 3 to 4 weeks once the amiodarone has had some time to work. 2. Cardiomyopathy: His ejection fraction was markedly reduced, I suspect it is due to rapid atrial fibrillation although we cannot be confident. Is not due to coronary artery disease. We need to continue with his heart failure medications including metoprolol succinate and Entresto. Hopefully this will improve. 3. CAD: Nonobstructive. Would not account for his reduced LV systolic function. Continue beta-zeenat. Would recommend high-intensity statin therapy however transaminase levels currently elevated. 4. Hypertension: His blood pressure is good today. Admission and Anticipated Discharge Date Admission Date: April 14, 2021 Subjective He is feeling better today, he reports that his breathing is easier than over the weekend or from when he came in. He still has not been very active but in the hospital has not had much difficulty with activity. He has no palpitations. Physical Exam Physical Exam: Constitutional: Alert, cooperative and in no distress. HEENT: Unremarkable Neck: No jugular venous distention, carotid pulses are irregular but otherwise normal and equal bilaterally without bruits. Pulmonary: Clear to auscultation bilaterally. Cardiac: Irregular rapid rhythm with no murmur, gallop or rub. Abdomen: Soft, nontender with normal bowel sounds. Extremities: No edema. Distal pulses intact. Neurologic: No focal findings. Gait was not tested. Skin: No rash, ecchymoses or petechiae. Results & Data ([facility]) Vital Signs (Past 12 Hours) Vital Signs Temp Pulse Pulse Pulse Resp BP BP 04/21/21 12:02 36.4 C L 139 H 18 120/86 04/21/21 07:59 36.4 C L 126 H 15 124/92 04/21/21 07:53 114 H 04/21/21 04:00 36.7 C 111 H 18 121/73 Pulse Ox 04/21/21 12:02 95 04/21/21 07:59 95 04/21/21 07:53 04/21/21 04:00 94 Laboratory Results Cardiac Enzymes 04/21/21 Range/Units 07:31 AST 24 (15-37) U/L CBC 04/21/21 Range/Units 07:31 WBC 11.46 H (4.8-10.8) K/uL RBC 5.29 (4.7-6.1) M/uL Hgb 15.2 (14.0-18.0) g/dL Hct 46.4 (42-52) % Plt Count 333 (130-400) K/uL Neut # (Auto) 7.41 H (1.4-6.5) K/uL Lymph # (Auto) 2.45 (1.2-3.4) K/uL [place] # (Auto) 1.30 H (0.11-0.59) K/uL Eos # (Auto) 0.23 (0-0.5) K/uL Baso # (Auto) 0.02 (0-0.2) K/uL Comprehensive Metabolic Panel 04/21/21 Range/Units 07:31 Sodium 141 (136-145) mmol/L Potassium 3.6 (3.5-5.1) mmol/L Chloride 109 H (98-107) mmol/L Carbon Dioxide 22 (21-32) mmol/L BUN 15 (7-18) mg/dl Creatinine 1.01 (0.6-1.4) mg/dl Glucose 103 H (70-99) mg/dl Calcium 9.1 (8.5-10.1) mg/dl AST 24 (15-37) U/L ALT 83 H (12-78) Alkaline Phosphatase 73 (45-117) U/L Total Protein 6.5 (6.4-8.2) gm/dl Albumin 2.9 L (3.4-5.0) gm/dl Intake and Output 04/20/21 04/21/21 04/21/21 22:59 06:59 14:59 Intake Total 184.535 / 1019.535 200 / 1019.535 Balance 184.535 / 569.535 200 / 569.535 Intake: IV 184.535 / 384.535 200 / 384.535 Amiodarone / D5w 360 mg In 200 184.535 / 384.535 200 / 384.535 ml @ 0.5 MG/MIN 16.667 mls/hr IV .Q12H [facility] Rx#:[id number] Other: Other Intake Source Sips # Unmeasured Voids 1 1 Weight 90.4 kg Weight Measurement Method Built in [facility] Digoxin level 0.7 today Diagnostic Findings Telemetry: Atrial fibrillation, average heart rate is around 1 10-1 20 with very little diurnal heart rate variation. PG Care Time/CCT Total # of Minutes Spent Total Time Spent with Patient: Total time spent is greater than 50% in coordination of care (as documented) at patient's floor/unit and/or counseling patient: Coding Level of Care Code 80471 Subseq Hosp Care Lvl 3 Diagnoses Atrial fibrillation with RVR I48.91 Cardiomyopathy I42.9 Cardiomyopathy type: unspecified CAD (coronary artery disease) I25.10 Hypertension I10 (1) Cardiomyopathy Cardiomyopathy type: unspecified Qualified Code(s): I42.9 - Cardiomyopathy, unspecified
[2021-04-21] MEDS: DIGOXIN 0.125 MG TAB PO SCH (17:19)
[2021-04-21] MEDS: MELATONIN 3 MG TAB PO PRN (22:09)
[2021-04-22] MEDS: LEVOTHYROXINE SODIUM 25 MCG TABLET PO SCH (05:43)
--- NOTE | 2021-04-22 07:44 | Hospitalist Progress Note ---
Date of Service April 22, 2021 Assessment & Plan (1) Atrial fibrillation with RVR: Plan: Atrial fibrillation with RVR IV diltiazem drip started, then transitioned to Lopressor IV Lopressor stopped due to hypotension, IV digoxin given (250 mcg) Echocardiogram: CHF systolic HF (EF: 20 to 25%) Consulted cardiology * continue rate control meds - Toprol 100 mg twice daily; digoxin 0.125 mg every afternoon (approximately 1600) * anticoagulation with apixaban 5 mg bid. * repeat echo with worsening EF * Cardioversion after OMAR was successful in converting the rhythm but it held very briefly and he quickly reverted back to atrial fibrillation * [facility] summary: Mild to moderate nonobstructive coronary artery disease, 50% mid LAD, 40 to 50% mid circumflex, Borderline intracardiac filling pressure * TSH 5.210, started Synthroid 25mcg * d/c IV amiodarone, continue PO amiodarone 600mg qam * Plan to cardiovert in 3-4 weeks after amiodarone has time to work * consider high dose intensity statin once transaminitis lowers Cardiomyopathy Initial echo 04/14/2021: Severely reduced LV systolic function, EF: 20-25%, no evidence of ischemia, CHF on imaging. Repeat echo 04/17/2021: EF 15 to 20% with severely reduced LV systolic function, severe global LV hypokinesis. More urgent management indicated. * Metoprolol, digoxin doses as above * Transesophageal echo, intracardiac catheterization scheduled for 04/18/2021: See results above * As per Cardiology, given another dose of Lasix 20mg IV given still dyspneic on exertion at times. * Continue guideline directed medical therapy for nonischemic cardiomyopathy * Continued ASCVD risk factor modification * Added low dose Entresto 26mg HTN * Toprol, digoxin as above. Concern of sleep apnea * Nocturnal pulse oximetry ordered; 54 desaturations overnight in 7 hours of sleep. 7.7 desaturations per hour. C/f GABRIEL, CSA. * CPAP HS, patient refused last night, will try again tonight. * Recommend further outpatient evaluation of sleep apnea. Subclinical hypothyroidism: * TSH 5.210, likely not the main contributing factor to new onset A. Fib. * Started on 25mcg levothyroxine. FENa: low fat diet DVT Prophylaxis: Apixaban Code status: Full code (2) Cardiomyopathy: (3) Hypertension: (4) Hepatic steatosis: Plan: Patient seen and examined, chart reviewed, case discussed with Dr. García and I agree with the assessment and plan as above except as otherwise noted 60-year-old male with A. fib/RVR and cardiomyopathy with conversion back to A. fib after electrical cardioversion with inadequate rate control to the 140s today. IV amiodarone being transitioned to p.o., discontinuing IV today. Digoxin slightly subtherapeutic 0.7. Followed by cardiology, defer increase in digoxin at this time. Patient will undergo cardioversion in 3 to 4 weeks. Etiology of cardiomyopathy unclear, does not appear to be ischemic? Rate related. Continuing metoprolol, Entresto. Appreciate cardiology recommendations. Rate decreasing through afternoon, if remains rate controlled progressing towards discharge on oral amiodarone/dig/metoprolol. Continue Entresto, continue anticoagulation with apixaban. At bedside patient feels well, has refused CPAP in the past discussed his multiple nocturnal desaturations and the effect of this on pulmonary hypertension, A. fib, and cardiomyopathy. Patient agreeable to CPAP trial and further outpatient evaluation for sleep apnea/sleep study. At bedside radial pulse intact, irregularly irregular, breathing unlabored with symmetrical chest rise, no acute distress. Admission and Anticipated Discharge Date Admission Date: April 14, 2021 Results & Data Results & Data ([facility]) Vital Signs (Past 12 Hours) Vital Signs Temp Pulse Pulse Resp BP Pulse Ox 04/22/21 07:18 36.6 C 69 16 114/80 97 04/22/21 03:38 36.8 C 90 19 133/69 97 04/22/21 03:34 36.5 C 61 18 115/71 95 04/21/21 23:14 36.8 C 74 18 120/78 94 04/21/21 19:57 37.1 C 70 18 116/83 97 (1) Cardiomyopathy Cardiomyopathy type: unspecified Qualified Code(s): I42.9 - Cardiomyopathy, unspecified
[2021-04-22 08:02] LABS: Albumin Level 2.9 gm/dl (3.4-5.0); BUN Creatinine Ratio 15.2 (10-20); Calcium 9.1 mg/dl (8.5-10.1); Creatinine Clr Calc Pharmacy 83.5 ml/min; Est GFR (African American) 85.3 ml/min; Est GFR (Non-African American) 73.6 ml/min; Potassium 4.2 mmol/L (3.5-5.1)
[2021-04-22 08:12] LABS: Albumin Globulin Ratio 0.9 (0.9-2); Bilirubin,Total 0.9 mg/dl (0.2-1); Globulin 3.3 gm/dl (2.5-4.0); Total Protein 6.2 gm/dl (6.4-8.2)
[2021-04-22] MEDS: METOPROLOL SUCC 50MG EXT REL TAB PO SCH (08:39)
[2021-04-22] MEDS: APIXABAN 5 MG TABLET PO SCH (08:39)
[2021-04-22] MEDS: ASCORBIC ACID 500 MG TAB PO SCH (08:39)
[2021-04-22] MEDS: VALSARTAN/SACUBITRIL 26/24MG TAB PO SCH (08:40)
[2021-04-22] MEDS ORDERED: AMIODARONE 200 MG TAB PO SCH (09:00)
--- NOTE | 2021-04-22 10:01 | Cardiology Progress Note ---
Date of Service April 22, 2021 Assessment & Plan (1) Atrial fibrillation with RVR: (2) Cardiomyopathy: (3) CAD (coronary artery disease): (4) Hypertension: Plan: ASSESSMENT/PLAN: 1. AFib with RVR: His heart rate remained elevated while in atrial fibrillation although was perhaps somewhat better on amiodarone. It is surprising that he converted to sinus rhythm/sinus bradycardia and has remained there overnight, however it is a good outcome. With conversion to oral from intravenous amiodarone he may revert back to atrial fibrillation but I would continue oral amiodarone as well as oral digoxin and beta-blockade at his current dose to guard against recurrence with rapid heart rates. Should he recur he will likely have a fast heart rate and I am hopeful that his cardiomyopathy will improve with rate control, ideally he will remain in sinus rhythm. 2. Cardiomyopathy: His ejection fraction was markedly reduced, I suspect it is due to rapid atrial fibrillation although we cannot be confident. Is not due to coronary artery disease. We need to continue with his heart failure medications including metoprolol succinate and Entresto. Hopefully this will improve, especially now that he is in sinus rhythm. 3. CAD: Nonobstructive. Would not account for his reduced LV systolic function. Continue beta-zeenat. Would recommend high-intensity statin therapy however transaminase levels were elevated. This could be added later as an outpatient, perhaps his transaminase levels will improve in sinus rhythm. 4. Hypertension: His blood pressure has been well controlled for the last several days. Admission and Anticipated Discharge Date Admission Date: April 14, 2021 Subjective Although not very definitive he tells me that he does feel better today, although he cannot tell me exactly why. This is coincident with him converting to sinus rhythm from atrial fibrillation. Since he had no awareness of the arrhythmia he does not feel different in that regard. He may feel little bit stronger now and a little bit less short of breath. Physical Exam Physical Exam: Constitutional: Alert, cooperative and in no distress. HEENT: Unremarkable Neck: No jugular venous distention, carotid pulses are normal and equal bilater ally without bruits. Pulmonary: Clear to auscultation bilaterally. Cardiac: Regular rhythm with no murmur, gallop or rub. Abdomen: Soft, nontender with normal bowel sounds. Extremities: No edema. Distal pulses intact. Neurologic: No focal findings. Skin: No rash, ecchymoses or petechiae. Results & Data ([facility]) Vital Signs (Past 12 Hours) Vital Signs Temp Pulse Pulse Resp BP Pulse Ox 04/22/21 07:18 36.6 C 69 16 114/80 97 04/22/21 03:38 36.8 C 90 19 133/69 97 04/22/21 03:34 36.5 C 61 18 115/71 95 04/21/21 23:14 36.8 C 74 18 120/78 94 Laboratory Results Cardiac Enzymes 04/22/21 Range/Units 07:05 AST 22 (15-37) U/L Comprehensive Metabolic Panel 04/22/21 Range/Units 07:05 Sodium 139 (136-145) mmol/L Potassium 4.2 D (3.5-5.1) mmol/L Chloride 109 H (98-107) mmol/L Carbon Dioxide 24 (21-32) mmol/L BUN 17 (7-18) mg/dl Creatinine 1.10 (0.6-1.4) mg/dl Glucose 102 H (70-99) mg/dl Calcium 9.1 (8.5-10.1) mg/dl AST 22 (15-37) U/L ALT 72 (12-78) Alkaline Phosphatase 68 (45-117) U/L Total Protein 6.2 L (6.4-8.2) gm/dl Albumin 2.9 L (3.4-5.0) gm/dl Intake and Output 04/21/21 04/22/21 04/22/21 22:59 06:59 14:59 Intake Total 300 / 1050.022 360 / 1050.022 Balance 300 / 1050.022 360 / 1050.022 Intake: Oral 300 / 900 360 / 900 Other: # Unmeasured Voids 1 1 1 Weight 92.2 kg Weight Measurement Method Built in [facility] Diagnostic Findings Telemetry: Atrial fibrillation with a moderately rapid heart rate until 1930 on 04/21/2021 when sinus bradycardia occurred, heart rate around 60 bpm since. PG Care Time/CCT Total # of Minutes Spent Total Time Spent with Patient: Total time spent is greater than 50% in coordination of care (as documented) at patient's floor/unit and/or counseling patient: Coding Level of Care Code 45273 Subseq Hosp Care Lvl 2 Diagnoses Atrial fibrillation with RVR I48.91 Cardiomyopathy I42.9 Cardiomyopathy type: unspecified CAD (coronary artery disease) I25.10 Coronary Disease-Associated Artery/Lesion type: [place] artery [place] vs. transplanted heart: [place] heart Associated angina: without angina Hypertension I10 (1) Cardiomyopathy Cardiomyopathy type: unspecified Qualified Code(s): I42.9 - Cardiomyopathy, unspecified (2) CAD (coronary artery disease) Coronary Disease-Associated Artery/Lesion type: [place] artery [place] vs. transplanted heart: [place] heart Associated angina: without angina Qualified Code(s): I25.10 - Atherosclerotic heart disease of [place] coronary artery without angina pectoris
--- NOTE | 2021-04-22 15:49 | Discharge Summary ---
Date of Service April 22, 2021 Admission HPI Per Admitting Provider Mr. Hernandez is a 60 year old male with a history of Hypertension, Hepatic Steatosis, Hypertriglyceridemia, BCC of the Skin, and Lumbar Spinal Stenosis who presented to [facility] today complaining of SOB and PICKENS over the past 5 days. SOB is definitely worse with ambulation and physical activities. He also describes a mild, dull left-sided chest pain and a tingling in his left arm but this is not worse with exertion and is without associated symptoms. He specifically denies any associated nausea, vomiting, or diaphoresis. He does not however feel a sensation of palpitations. He has never experienced symptoms like this before. He has not taken any medications for these symptoms. The patient contacted his family physician today, who sent him to the emergency department for evaluation. Patient does not take any prescription medications. He denies any prior cardiac history or events. No family history of heart disease. Father of lung cancer. Mother of cancer. Patient is on exterminator helper termite disability. He does not exercise routinely. Admission Exam Per Admitting Provider GENERAL: Patient in no acute distress. HEENT: Head is atraumatic, normocephalic. EOM's intact. Facies symmetric. No perioral cyanosis. NECK: No JVD. JVP is not elevated. Carotid upstrokes are + 2 bilaterally without obvious bruits. CHEST/LUNGS: Clear to auscultation throughout all lung sheppard. No wheezes, rales, or crackles. CVS: S1 and S2 are irregularly irregular, tachycardic, and distant without obvious murmurs, gallops, or rubs. PMI is nonpalpable. No lifts, heaves, or thrills. No abdominal aortic or renal bruits. ABDOMINAL EXAM: Bowel sounds are present. No masses, organomegaly, or tenderness. EXTREMITIES: No clubbing or cyanosis. No edema. Intact posterior tibial and radial pulses bilaterally. NEUROLOGIC EXAM: Patient is awake, alert, and oriented. Pleasant and cooperative. Answers questions appropriately. Speech is clear. Normal movement in all 4 extremities. Gait pattern not assessed. AUTOMOTIVE REFINISH TECHNICIAN: -- A-Fib at a rate of 130 bpm. Principal Diagnosis Atrial Fibrillation with RVR Discharge Exam Constitutional well developed, well nourished, cooperative, comfortable and + overweight Respiratory normal respiratory effort, lungs clear to auscultation Cardiovascular RRR, no murmur, no edema Heart Sounds: normal S1 and normal S2 Gastrointestinal (Abdomen) normal bowel sounds, soft, nontender, no hepatosplenomegaly Skin no rashes, warm and dry Psychiatric A+Ox3, euthymic affect Discharge Data Allergies Allergy/AdvReac Type Severity Reaction Status Date / Time No Known Allergies Allergy Verified 03/14/21 12:57 Consultations 04/15/21 07:42 Consult Cardiology Routine Procedures Performed Operation Date: 04/18/21 07:15 Actual Procedures p Echo Transesophageal - Ciro Jerome MD s Echo Doppler Complete - Ciro Jerome MD s Echo Color Flow - Ciro Jerome MD Operation Date: 04/18/21 07:45 Actual Procedures p Cath, Left with Cors and Vent - Ciro Jerome MD s Cineradiography w/Routine Exam - Ciro Jerome MD Ordered Studies 04/18/21 07:42 CL Cath Imgs for PACS use only Routine Hospital Course (1) Atrial fibrillation with RVR: Atrial fibrillation with RVR Patient was started on IV diltiazem drip, then transitioned to Lopressor. IV Lopressor stopped due to hypotension, IV digoxin given. Echocardiogram: CHF systolic HF (EF: 20 to 25%). Consulted cardiology, medication adjusted to PO Toprol, PO digoxin, apixaban, IV amiodarone transitioned to PO amiodarone. TSH 5.210, started Synthroid 25mcg. Repeat echo demonstrated worsening EF. Cardioversion after OMAR was successful in converting the rhythm but it held very briefly and he quickly reverted back to atrial fibrillation. [facility] summary: Mild to moderate nonobstructive coronary artery disease, 50% mid LAD, 40 to 50% mid circumflex, Borderline intracardiac filling pressure. 04/21 stopped IV amiodarone and increased PO amiodarone to 600mg, 04/21 evening patient spontaneously converted to sinus rhythm 60bpm and remained in sinus rhythm. Cardiology recommended high intensity statin, atorvastatin 40mg daily added to outpatient medication regime. Patient to continue Metoprolol Succinate 100mg BID, Entresto 24-26 BID, Eliquis 5mg BID, Levothyroxine 25mcg daily, Amiodarone 600mg daily, Digoxin 0.125mg daily. Please have patient recheck LFT and thyroid level in outpatient. Please have patient monitor digoxin level with cardiology. Cardiomyopathy Initial echo 04/14/2021: Severely reduced LV systolic function, EF: 20-25%, no evidence of ischemia, CHF on imaging. Repeat echo 04/17/2021: EF 15 to 20% with severely reduced LV systolic function, severe global LV hypokinesis. Intracardiac catheterization 04/18 showed CAD unlikely to be contributory. Patient treated with metoprolol, digoxin, given IV lasix which helped his SOB. Started low dose Entresto. HTN Managed with metoprolol succinate, digoxin, entresto Concern of sleep apnea Nocturnal pulse oximetry ordered; 54 desaturations overnight in 7 hours of sleep. 7.7 desaturations per hour. C/f GABRIEL, CSA. Ordered CPAP HS, patient tolerated for 1 hour. Recommend outpatient sleep study for diagnosis of sleep apnea and treatment with CPAP. Subclinical hypothyroidism: TSH 5.210, likely not the main contributing factor to new onset A. Fib. Started on 25mcg levothyroxine. (2) Cardiomyopathy: (3) Hypertension: (4) Hepatic steatosis: Total Time Total Time Spent Total Time Spent (In Minutes): see attending attestation Discharge Plan Discharge Items Patient Disposition: Home - Self-Care Reason For Visit: AFIB WITH RVR Discharge Diagnosis: Afib with RVR and cardiomyopathy Activity: Resume your previous activity Non-emergency contact: Primary Care Provider and Salesman/Owner Call non-emergency contact if: you have any medication questions and your symptoms worsen Follow-up/Referrals: Jony Matute MD [Primary Care Provider] - (Follow up in 2 weeks, please repeat LFT, thyroid level, and order sleep study for sleep apnea) Richard Bowers MD [Physician] - (Follow up in 2 weeks) Diet: Heart Healthy Addtl Attending Provider Instructions: You were admitted to the hospital for atrial fibrillation. This means that your heart was beating rapidly at an irregular rhythm. We managed to control your atrial fibrillation with the medications Amiodarone, Digoxin, and Metoprolol. As it is not uncommon for atrial fibrillation to reoccur, we will continue these medications in outpatient to prevent your heart from beating too quickly and becoming symptomatic. Atrial fibrillation also increases risk of blood clotting, so we started you on a blood thinner called Eliquis. Please follow with your auxiliary operator to monitor your digoxin levels. You were diagnosed with cardiomyopathy with a reduced ejection fraction, where your heart does not pump as efficiently as before. Your medical history of atrial fibrillation, hypertension, and possible sleep apnea may have contributed to the development of this condition. You were found to have coronary artery disease, though it is not as contributory to your heart condition. Treatment of your atrial fibrillation can preserve and occasionally improve your heart function. We added the medications Entresto and Lipitor to better control your blood pressure and coronary artery disease, to better preserve your heart condition. Please follow with your PCP to check on your liver function, as your medication may have interactions with your liver. We encourage you to follow up with your primary care provider to obtain a sleep study for possible sleep apnea, as treatment of sleep apnea using CPAP can preserve and occasionally improve your heart function. You were found to have subclinical hypothyroidism, and started on levothyroxine. Please follow with your PCP to monitor your thyroid levels in outpatient. A discharge summary will be sent to your primary care physician to ensure continuity of care. Please bring this discharge summary with you to your next office appointment so that your provider can review it at that time. Follow-up appointments: We have requested a follow-up appointment with your primary care physician within two weeks of discharge. Please call their office if you do not hear from them. We have requested a follow-up appointment with your auxiliary operator within two weeks of discharge. Please call their office if you do not hear from them. Keep all your follow-up appointments as already scheduled. If you cannot make an appointment, notify your provider. Medications: Your medication list has been reviewed and reconciled upon discharge to ensure accuracy and continuity of care. An updated list of all your medications is included with your hospital discharge paperwork. Please review this list closely, and make note of any changes. * We sent a new medication called Metoprolol Succinate to your pharmacy. Take Metoprolol Succinate (100mg) one tablet twice a day * We sent a new medication called Amiodarone to your pharmacy. Take Amiodarone (600mg) one tablet daily * We sent a new medication called Digoxin to your pharmacy. Take Digoxin (0.125mg) one tablet daily * We sent a new medication called Apixaban (Eliquis) to your pharmacy. Take Eliquis (5mg) one tablet twice a day * We sent a new medication called Levothyroxine to your pharmacy. Take Levothyroxine (25mcg) one tablet daily * We sent a new medication called Sacubitril/Valsartan (Entresto) to your pharmacy. Take Sacubitril/Valsartan (24-26mg) one tablet twice a day * We sent a new medication called Atorvastatin (Lipitor) to your pharmacy. Take Atorvastatin 40mg one tablet daily Take your medications as instructed; do not skip a dose of your medicines. Make sure all of your doctors know every medicine you are taking (including [id number] medicines, vitamins, and supplements). Call your primary care provider before taking any new medicines (including [id number] medicines, vitamins, and supplements), because some of these may interact with your current medications, or may make your symptoms worse. Tell your primary care provider if you cannot afford your medications. CONTACT YOUR PRIMARY CARE PROVIDER if you experience any of the following: Shortness of breath Palpitations Difficulty following your treatment plan, or difficulty taking medications CALL 911 OR GO TO THE EMERGENCY DEPARTMENT if you experience any of the following: Sudden, severe abdominal pain or nausea/vomiting Severe chest pain, or chest pain that radiates (moves) to your jaw or arm Sudden, severe shortness of breath or difficulty breathing Thank you for allowing us to participate in your care. Pending Studies at Discharge: No Stand-Alone Forms: My [facility] [employer], Smoking Cessation Medications and DC Order Prescriptions: New Eliquis 5 mg tablet 5 mg PO BID 30 Days Qty: 60 RF: 0 metoprolol succinate 100 mg tablet extended release 24 hr 100 mg PO BID 30 Days Qty: 60 RF: 0 Entresto 24-26 mg tablet 1 tab PO BID 30 Days Qty: 60 RF: 0 digoxin 125 mcg (0.125 mg) tablet 125 mcg PO DAILY 30 Days Qty: 30 RF: 0 amiodarone 200 mg tablet 200 mg PO TID 30 Days Qty: 90 RF: 0 levothyroxine 25 mcg capsule 25 mcg PO DAILY 30 Days Qty: 30 RF: 0 atorvastatin 40 mg tablet 40 mg PO DAILY 30 Days Qty: 30 RF: 0 Continued ascorbic acid (vitamin C) 1,000 mg tablet 1 gm PO DAILY RF: 0 Discharge Orders: Discharge Order (Routine); Ordered 04/22/21 Ordered By: Silvia Wren/Other Patient Handouts: 5 Steps for Eating Healthier Admission Data Admit Date/Time: 04/14/21 14:09 Attending Provider: Jony Beltran Admit Provider: Reid Palomino Primary Care Provider: Jony Matute Other Providers: Dane Gerber Other Interventions: Discharge Summary Assessment (RN) Last Done: 04/22/21 15:38 Supervising Physician Co-Signing Physician Notes Patient seen and examined, chart reviewed, case discussed with Dr. García and I agree with the assessment and plan as above except as otherwise noted above. Patient seen at bedside, care plan discussed in detail. Patient is comfortable, without palpitations, and feels his normal baseline. Irregular rhythm with a regular rate, normotensive, skin is warm and dry. To do as outpatient: 1. Continue amiodarone 200 mg 3 times daily, dose adjusted/frequency addressed at follow-up appointment 2. Continue digoxin 0.125 mg daily 3. Continue metoprolol 100 mg succinate daily 4. Continue Eliquis 5. Continue Entresto 6. Continue Synthroid 25 mcg. Recheck thyroid studies in 6 weeks 7. Continue atorvastatin 40 mg. Repeat LFTs to ensure stability in 1-2 weeks. 8. Routine PCP follow-up 9. Cardiology follow-up as outpatient 10. Outpatient Sleep study/CPAP eval A. fib with RVR with cardiomyopathy during admission, question rate related EF decreased. Medications as noted above, agree with plan as above. Time spent day of discharge 45 minutes including documentation, review of labs and images, direct clinical care, and coordination of care. Resident Activity Tracking Resident Involvement: Resident Care Provided Care Provided: Adult [facility]
[2021-04-22] MEDS: DIGOXIN 0.125 MG TAB PO SCH (15:58)
--- NOTE | 2021-04-22 17:43 | Billing Data ---
Date of Service April 22, 2021 Coding Level of Care Code D/C DAY MANAGEMENT >30 MINS
== END 2021-04-22 16:38 | disposition home or self-care (01) | DRG 286 ==
LOC: ED 11:29 → SUATTDRO 14:09 → 2S 14:09